=== PATIENT | male | born 1975 | race Two or more races ===

== ENCOUNTER 2023-01-18 10:10 | Inpatient (IN) | payer MEDICARE, MEDICAID ==
[~2023-01-18] VITALS: Ht 170.2 cm; Wt 69.0 kg
[2023-01-18] VITALS (29 sets, daily range): BP systolic 68–134; BP diastolic 29–83; PULSE 78–109; RESP 18–31; TEMP 94–99.7; O2SAT 72–100
[2023-01-18] MEDS ORDERED: ROCURONIUM 10MG/ML 10ML VIAL IV ONE (10:17)
[2023-01-18] MEDS ORDERED: ETOMIDATE (2MG/ML) 20ML VIAL IV ONE (10:18)
[2023-01-18] MEDS ORDERED: PROPOFOL 100 ML IV ONE (10:26)
[2023-01-18] MEDS ORDERED: NOREPINEPHRINE 8 MG/250ML KIT 250 ML IV ONE (10:27)
[2023-01-18] MEDS ORDERED: PIPERACILLIN-TAZO 4.5GM 100 ML IV ONE (10:30)
[2023-01-18] MEDS ORDERED: NOREPINEPHRINE 8 MG/250ML KIT 250 ML IV SCH (10:30)
[2023-01-18] MEDS ORDERED: VANCOMYCIN 1GM/250ML 250 ML IV ONE (10:30)
[2023-01-18] MEDS ORDERED: SODIUM CHLORIDE 0.9% 1,350 ML IV ONE (10:30)
[2023-01-18] MEDS: PROPOFOL 100 ML IV SCH ×2 (10:45→20:13)
[2023-01-18 11:22] LABS: Base Excess -3.7 mmol/L (-2.0-2.0)
[2023-01-18] MEDS ORDERED: DEXTROSE 50% SYRINGE 50 ML IV ONE (11:23)
[2023-01-18 11:24] LABS: Alanine Aminotransferase 39 U/L (7-40); Albumin 2.1 g/dL (3.2-4.8); Alkaline Phosphatase 148 U/L (46-116); Anion Gap 8.4 (5-15); Aspartate Aminotransferase 80 U/L (13-40); BUN/Creatinine Ratio 83.3 (10.0-20.0); Bilirubin, Direct 0.1 mg/dL (<0.3); Bilirubin, Total 0.3 mg/dL (0.2-1.0); Blood Urea Nitrogen 20 mg/dL (9-23); Calcium 7.3 mg/dL (8.5-10.1); Carbon Dioxide 25.6 mmol/L (20-30); Chloride 95 mmol/L (98-107); Glucose 60 mg/dL (74-106); Sodium 129 mmol/L (136-145); Total Protein 4.6 g/dL (5.7-8.2)
[2023-01-18 11:29] LABS: Hematocrit 25.1 % (41.0-53.0); Mean Corpuscular Hemoglobin 29.6 pg (28.0-32.0); Mean Corpuscular Hgb Conc. 31.9 g/dL (32.0-36.0); Mean Corpuscular Volume 92.8 fL (80.0-100.0); Red Cell Distribution Width 15.3 % (11.8-14.3); White Blood Cell 13.1 10^3/uL (4.4-10.8)
[2023-01-18] MEDS ORDERED: DEXTROSE (50%) 50ML SYRG IV ONE ×2 (11:30)
[2023-01-18 11:32] LABS: INR 1.48 (0.9-1.15); Prothrombin Time 15.1 sec (9.3-11.8)
[2023-01-18 11:39] LABS: Basophils % (manual) 0 (0.0-2.0); Blast Cells 0; Eosinophils % (manual) 0 (0-7); Metamyelocytes % 0; Myelocytes % 0; Promyelocytes % 0; Reactive Lymphocytes 0
[2023-01-18 11:54] LABS: Urine Bacteria NONE SEEN /hpf (None Seen); Urine Blood 3+ /uL (Negative); Urine Clarity HAZY (Clear); Urine Color PINK (Yellow); Urine Hyaline Cast MANY /lpf (0 - 2); Urine Mucus FEW (None Seen); Urine Protein, UAD 1+ (Negative); Urine Specific Gravity 1.017 (1.001-1.035); Urine Urobilinogen Normal (Negative); Urine WBC 130 /hpf (0 - 3); Urine pH 5.5 (5.0-8.0)
[2023-01-18 12:10] LABS: Band Neutrophils % (manual) 55; Lymphocytes % (manual) 9 (10.0-50.0); Monocytes % (manual) 9 (0-12)
[2023-01-18 12:11] LABS: Platelet Estimate Adequate
[2023-01-18 12:21] LABS: Lactic Acid w/Reflex 6.1 mmol/L (0.4-2.0)
[2023-01-18] MEDS ORDERED: CIPROFLOXACIN 400MG/200ML 200 ML IV ONE (13:00)
[2023-01-18] MEDS ORDERED: SODIUM CHLORIDE 0.9% 1,000 ML IV ONE (13:00)
[2023-01-18 13:14] LABS: Base Excess -5.4 mmol/L (-2.0-2.0)
[2023-01-18 13:20] LABS: Lipase 25 U/L (12-53)
[2023-01-18 13:42] LABS: COVID19 ANTIGEN SOFIA FIA NEGATIVE (NEGATIVE)
[2023-01-18] MEDS ORDERED: MORPHINE SULFATE INJ 2 MG/ml SYRG IV PRN (13:45)
[2023-01-18] MEDS ORDERED: NITROGLYCERIN 0.4 MG SL TAB SL PRN (13:45)
[2023-01-18] MEDS ORDERED: ACETAMINOPHEN 650 mg PER 20.3 mL UD GT PRN (14:00)
[2023-01-18] MEDS ORDERED: metroNIDAZOLE 500MG/100ML 100 ML IV SCH (14:00)
[2023-01-18] MEDS ORDERED: GABA-339 PO (14:24)
[2023-01-18] MEDS ORDERED: METH-1181 PO (14:24)
[2023-01-18] MEDS ORDERED: MIDO2.5T3 PO (14:24)
[2023-01-18] MEDS ORDERED: PANTOPRAZOLE 40 MG/10 ML VIAL INJ IV ONE (14:30)
[2023-01-18] MEDS ORDERED: LIDOCAINE 1% (LOCAL ANESTH.) PF 5ml SDV ID ONE (14:30)
[2023-01-18] MEDS: D5W/SOD CHL 0.45% 1,000 ML IV SCH (14:45)
[2023-01-18] MEDS ORDERED: THIAMINE 100mg/ml INJ (200mg/2ml VIAL) IV ONE (14:45)
[2023-01-18] MEDS: MIDAZOLAM DRIP 50 mg/50mL 50 ML IV SCH (15:00)
[2023-01-18 15:06] LABS: Base Excess -2.6 mmol/L (-2.0-2.0)
[2023-01-18] MEDS ORDERED: VANCOMYCIN PER PHARMACY 0 MG IV SCH (16:00)
[2023-01-18] MEDS: MAGNESIUM SULFATE 1GM/100ML 100 ML IV SCH ×2 (16:00→16:03)
[2023-01-18] MEDS: ALBUTEROL SULF 2.5 MG/0.5ML(0.5%) NEB SOLN NEB SCH ×2 (18:13→22:26)
[2023-01-18] MEDS: IPRATROPIUM BROM 0.5 MG/2.5ML INH SOL NEB SCH ×2 (18:13→22:26)
[2023-01-18] MEDS ORDERED: HYDROCORTISONE SOD SUCC 100 MG/2ML INJ VIAL IV ONE (19:00)
[2023-01-18] MEDS: NOREPINEPHRINE BITARTRATE 32 MG in SODIUM CHL 0.9% 218 ML IV SCH (20:10)
[2023-01-18] MEDS: VASOPRESSIN 20 UNITS in SODIUM CHL 0.9% 99 ML IV SCH (20:10)
[2023-01-18] MEDS: PHENYLEPHRINE INJ 80 MG in SODIUM CHL 0.9% 242 ML IV SCH (21:53)
[2023-01-18] MEDS: fentaNYL Drip 2500mCg/250mlNS 250 ML IV SCH (21:59)
[2023-01-18] MEDS: GABAPENTIN 300 MG CAP PO SCH (22:07)
[2023-01-18] MEDS: SODIUM CHLOR 0.9% PF (SALINE LOCK) 10ML VIAL/SYR IV SCH (22:07)
[2023-01-18] MEDS: MEROPENEM 1GM IVPB 100 ML IV SCH (22:07)
[2023-01-19] VITALS (111 sets, daily range): BP systolic 85–155; BP diastolic 44–111; PULSE 69–99; RESP 18–28; TEMP 95.9–100; O2SAT 93–100
[2023-01-19] MEDS: VANCOMYCIN 500 MG in D5W 5% 100 ML IV SCH ×2 (01:36→08:11)
[2023-01-19] MEDS: D5W/SOD CHL 0.45% 1,000 ML IV SCH (01:37)
[2023-01-19] MEDS: IPRATROPIUM BROM 0.5 MG/2.5ML INH SOL NEB SCH ×6 (02:14→22:05)
[2023-01-19] MEDS: ALBUTEROL SULF 2.5 MG/0.5ML(0.5%) NEB SOLN NEB SCH ×6 (02:14→22:05)
[2023-01-19] MEDS: MIDAZOLAM DRIP 50 mg/50mL 50 ML IV SCH ×2 (02:29→19:41)
[2023-01-19 04:10] LABS: White Blood Cell 27.2 10^3/uL (4.4-10.8)
[2023-01-19 04:16] LABS: Hematocrit 21.2 % (41.0-53.0); Mean Corpuscular Hemoglobin 29.4 pg (28.0-32.0); Mean Corpuscular Hgb Conc. 31.9 g/dL (32.0-36.0); Mean Corpuscular Volume 92.2 fL (80.0-100.0); Red Cell Distribution Width 15.7 % (11.8-14.3)
[2023-01-19 04:28] LABS: Lactic Acid w/Reflex 3.1 mmol/L (0.4-2.0)
[2023-01-19 04:31] LABS: Alanine Aminotransferase 36 U/L (7-40); Albumin 2.1 g/dL (3.2-4.8); Alkaline Phosphatase 111 U/L (46-116); Anion Gap 6 (5-15); Aspartate Aminotransferase 71 U/L (13-40); BUN/Creatinine Ratio 42.3 (10.0-20.0); Bilirubin, Total 0.2 mg/dL (0.2-1.0); Blood Urea Nitrogen 22 mg/dL (9-23); Carbon Dioxide 24 mmol/L (20-30); Chloride 95 mmol/L (98-107); Glucose 152 mg/dL (74-106); Potassium 4.2 mmol/L (3.5-5.1); Sodium 125 mmol/L (136-145); Total Protein 4.8 g/dL (5.7-8.2)
[2023-01-19 04:41] LABS: Hemoglobin 6.8 g/dL (13.5-17.5)
[2023-01-19 04:43] LABS: Basophils % (manual) 0 (0.0-2.0); Blast Cells 0; Eosinophils % (manual) 0 (0-7); Metamyelocytes % 0; Promyelocytes % 0; Reactive Lymphocytes 0
[2023-01-19] MEDS: VASOPRESSIN 20 UNITS in SODIUM CHL 0.9% 99 ML IV SCH ×2 (04:52→15:59)
[2023-01-19 04:59] LABS: Band Neutrophils % (manual) 52; Lymphocytes % (manual) 5 (10.0-50.0); Myelocytes % 1
[2023-01-19 05:02] LABS: Anisocytosis Slight; Hypochromia Slight; Ovalocytes FEW
[2023-01-19 05:03] LABS: Large Platelets FEW; Monocytes % (manual) 1 (0-12)
[2023-01-19] MEDS: GABAPENTIN 300 MG CAP PO SCH (05:24)
[2023-01-19] MEDS: MEROPENEM 1GM IVPB 100 ML IV SCH ×3 (05:24→21:39)
[2023-01-19 05:43] LABS: Platelet Estimate Adequate
[2023-01-19] MEDS ORDERED: cefTRIAXone 1GM/50ML D5W 50 ML IV SCH (09:00)
[2023-01-19] MEDS ORDERED: MIDODRINE HCL 10 MG TAB PO SCH (10:00)
[2023-01-19] MEDS ORDERED: ENOXAPARIN SOD 40 MG/0.4 ML SYRINGE SC SCH (10:00)
[2023-01-19] MEDS: ATRACURIUM BESYLATE 1,000 MG in D5W 5% 150 ML IV SCH ×2 (10:35→17:55)
[2023-01-19] MEDS: SODIUM CHLOR 0.9% PF (SALINE LOCK) 10ML VIAL/SYR IV SCH ×2 (10:37→21:39)
[2023-01-19] MEDS ORDERED: TPN PER PHARMACY 0 ML IV SCH (10:45)
[2023-01-19] MEDS: SODIUM CHLORIDE 0.9% 1,000 ML IV SCH ×2 (11:29→19:44)
[2023-01-19] MEDS: HYDROCORTISONE SOD SUCC 100 MG/2ML INJ VIAL IV SCH ×3 (11:33→21:39)
[2023-01-19] MEDS: PANTOPRAZOLE 40 MG/10 ML VIAL INJ IV SCH (11:33)
[2023-01-19 11:34] LABS: Base Excess -2.8 mmol/L (-2.0-2.0)
[2023-01-19] MEDS: NOREPINEPHRINE BITARTRATE 32 MG in SODIUM CHL 0.9% 218 ML IV SCH (13:42)
[2023-01-19 16:17] LABS: Hemoglobin 8.1 g/dL (13.5-17.5)
[2023-01-19] MEDS ORDERED: AMINO ACID INFUSION IN D10W 1,000 ML IV NR (20:00)
[2023-01-19] MEDS: PHENYLEPHRINE INJ 80 MG in SODIUM CHL 0.9% 242 ML IV SCH (20:45)
[2023-01-19] MEDS: fentaNYL Drip 2500mCg/250mlNS 250 ML IV SCH (21:53)
[2023-01-19] MEDS: InsuLIN REG 1unit/0.01ml Soln (100units/ml) SC SCH (23:56)
[2023-01-19] MEDS: ACCU-CHEK COMFORT CURVE STRIP VI SCH (23:56)
[2023-01-20] VITALS (104 sets, daily range): BP systolic 79–164; BP diastolic 47–104; PULSE 70–100; RESP 21–35; TEMP 96.3–99.9; O2SAT 86–100
[2023-01-20] MEDS ORDERED: DEXTROSE (50%) 50ML SYRG IV SCH
[2023-01-20] MEDS: IPRATROPIUM BROM 0.5 MG/2.5ML INH SOL NEB SCH ×6 (02:24→22:40)
[2023-01-20] MEDS: ALBUTEROL SULF 2.5 MG/0.5ML(0.5%) NEB SOLN NEB SCH ×6 (02:24→22:40)
[2023-01-20] MEDS: VASOPRESSIN 20 UNITS in SODIUM CHL 0.9% 99 ML IV SCH ×2 (03:06→14:13)
[2023-01-20 04:38] LABS: Basophils # (auto) 0 10 ^3/uL (0-0.2); Basophils % (auto) 0.2 % (0.0-2.0); Eosinophils # (auto) 0 10 ^3/uL (0-0.8); Lymphocytes # (auto) 0.4 10 ^3/uL (0.4-5.4); Monocytes # (auto) 0.4 10 ^3/uL (0-1.3)
[2023-01-20 04:42] LABS: Hematocrit 25.1 % (41.0-53.0); Hemoglobin 8.6 g/dL (13.5-17.5); Lymphocytes % (auto) 2.6 % (10.0-50.0); Mean Corpuscular Hemoglobin 30.5 pg (28.0-32.0); Mean Corpuscular Hgb Conc. 34.3 g/dL (32.0-36.0); Mean Corpuscular Volume 89.1 fL (80.0-100.0); Monocytes % (auto) 2.4 % (0.0-12.0); Neutrophils # (auto) 15.8 10 ^3/uL (1.6-8.6); Neutrophils % (auto) 94.8 % (37.0-80.0); Nucleated Red Blood Cells % 0.2 %; Red Blood Cells 2.82 10^6/uL (4.5-5.90); Red Cell Distribution Width 16.2 % (11.8-14.3); White Blood Cell 16.7 10^3/uL (4.4-10.8)
[2023-01-20 05:03] LABS: Alanine Aminotransferase 33 U/L (7-40); Albumin 2.3 g/dL (3.2-4.8); Alkaline Phosphatase 108 U/L (46-116); Anion Gap 5 (5-15); Aspartate Aminotransferase 58 U/L (13-40); Blood Urea Nitrogen 29 mg/dL (9-23); Calcium 6.9 mg/dL (8.5-10.1); Carbon Dioxide 24 mmol/L (20-30); Chloride 103 mmol/L (98-107); Glucose 107 mg/dL (74-106); Phosphorus 5.1 mg/dL (2.4-5.1); Potassium 4.3 mmol/L (3.5-5.1); Triglycerides 44 mg/dL (< 150)
[2023-01-20 05:04] LABS: Bilirubin, Total 0.2 mg/dL (0.2-1.0); Total Protein 5.2 g/dL (5.7-8.2)
[2023-01-20] MEDS: ACCU-CHEK COMFORT CURVE STRIP VI SCH ×4 (05:40→23:31)
[2023-01-20] MEDS: HYDROCORTISONE SOD SUCC 100 MG/2ML INJ VIAL IV SCH ×3 (05:40→21:08)
[2023-01-20] MEDS: MEROPENEM 1GM IVPB 100 ML IV SCH ×3 (05:40→21:05)
[2023-01-20] MEDS: SODIUM CHLORIDE 0.9% 1,000 ML IV SCH ×2 (05:41→18:13)
[2023-01-20] MEDS: InsuLIN REG 1unit/0.01ml Soln (100units/ml) SC SCH ×4 (05:49→23:32)
[2023-01-20 06:13] LABS: Sodium 132 mmol/L (136-145)
[2023-01-20] MEDS: fentaNYL Drip 2500mCg/250mlNS 250 ML IV SCH (09:00)
[2023-01-20] MEDS: VANCOMYCIN 500 MG in D5W 5% 100 ML IV SCH ×2 (09:28→18:15)
[2023-01-20 09:35] LABS: Base Excess -1.2 mmol/L (-2.0-2.0)
[2023-01-20] MEDS ORDERED: ENOXAPARIN SOD 30 MG/0.3 ML SYRINGE SC SCH (10:00)
[2023-01-20] MEDS: PANTOPRAZOLE 40 MG/10 ML VIAL INJ IV SCH (10:38)
[2023-01-20] MEDS: SODIUM CHLOR 0.9% PF (SALINE LOCK) 10ML VIAL/SYR IV SCH ×2 (10:39→21:08)
[2023-01-20] MEDS: PROPOFOL 100 ML IV SCH (11:56)
[2023-01-20 12:42] LABS: Base Excess -4.2 mmol/L (-2.0-2.0)
[2023-01-20 15:02] LABS: Base Excess -4.4 mmol/L (-2.0-2.0)
[2023-01-20] MEDS: NOREPINEPHRINE BITARTRATE 32 MG in SODIUM CHL 0.9% 218 ML IV SCH (15:54)
[2023-01-20] MEDS ORDERED: IOHEXOL 300 MG/ML 100ML BOTTLE IJ ONE (15:59)
[2023-01-20] MEDS: ATRACURIUM BESYLATE 1,000 MG in D5W 5% 150 ML IV SCH (18:45)
[2023-01-20] MEDS: MIDAZOLAM DRIP 50 mg/50mL 50 ML IV SCH (19:34)
[2023-01-20] MEDS ORDERED: TPN PER PHARMACY IV NR ×7 (20:00)
[2023-01-20] MEDS: PHENYLEPHRINE INJ 80 MG in SODIUM CHL 0.9% 242 ML IV SCH (20:45)
[2023-01-21] VITALS (115 sets, daily range): BP systolic 92–135; BP diastolic 48–86; PULSE 71–103; RESP 25–32; TEMP 96.3–99.3; O2SAT 90–100
[2023-01-21] MEDS: VASOPRESSIN 20 UNITS in SODIUM CHL 0.9% 99 ML IV SCH ×3 (01:20→22:42)
[2023-01-21] MEDS: VANCOMYCIN 500 MG in D5W 5% 100 ML IV SCH ×2 (01:21→20:08)
[2023-01-21] MEDS: SODIUM CHLORIDE 0.9% 1,000 ML IV SCH ×3 (01:29→21:31)
[2023-01-21] MEDS: IPRATROPIUM BROM 0.5 MG/2.5ML INH SOL NEB SCH ×6 (02:24→22:04)
[2023-01-21] MEDS: ALBUTEROL SULF 2.5 MG/0.5ML(0.5%) NEB SOLN NEB SCH ×6 (02:24→22:04)
[2023-01-21 04:38] LABS: Basophils # (auto) 0 10 ^3/uL (0-0.2); Basophils % (auto) 0.1 % (0.0-2.0); Eosinophils # (auto) 0 10 ^3/uL (0-0.8); Hemoglobin 7.1 g/dL (13.5-17.5); Lymphocytes # (auto) 0.6 10 ^3/uL (0.4-5.4); Monocytes # (auto) 0.5 10 ^3/uL (0-1.3); Neutrophils # (auto) 14.3 10 ^3/uL (1.6-8.6); White Blood Cell 15.4 10^3/uL (4.4-10.8)
[2023-01-21 04:40] LABS: Hematocrit 21.2 % (41.0-53.0); Mean Corpuscular Hemoglobin 29.6 pg (28.0-32.0); Mean Corpuscular Hgb Conc. 33.6 g/dL (32.0-36.0); Mean Corpuscular Volume 88.2 fL (80.0-100.0); Monocytes % (auto) 3.2 % (0.0-12.0); Neutrophils % (auto) 92.7 % (37.0-80.0); Nucleated Red Blood Cells % 0.3 %; Red Cell Distribution Width 16.1 % (11.8-14.3)
[2023-01-21 04:59] LABS: Alanine Aminotransferase 29 U/L (7-40); Alkaline Phosphatase 101 U/L (46-116); Anion Gap 7 (5-15); Aspartate Aminotransferase 42 U/L (13-40); BUN/Creatinine Ratio 68.5 (10.0-20.0); Blood Urea Nitrogen 37 mg/dL (9-23); Calcium 7.2 mg/dL (8.7-10.4); Carbon Dioxide 24 mmol/L (20-30); Chloride 108 mmol/L (98-107); Glucose 127 mg/dL (74-106); Magnesium 2.2 mg/dL (1.6-2.6); Sodium 139 mmol/L (136-145)
[2023-01-21 05:00] LABS: Albumin 2.1 g/dL (3.2-4.8); Phosphorus 4.3 mg/dL (2.4-5.1)
[2023-01-21 05:01] LABS: Bilirubin, Total < 0.2 mg/dL (0.2-1.0); Total Protein 4.8 g/dL (5.7-8.2)
[2023-01-21] MEDS: InsuLIN REG 1unit/0.01ml Soln (100units/ml) SC SCH ×4 (06:00→23:24)
[2023-01-21] MEDS: MEROPENEM 1GM IVPB 100 ML IV SCH ×3 (06:11→21:31)
[2023-01-21] MEDS: HYDROCORTISONE SOD SUCC 100 MG/2ML INJ VIAL IV SCH (06:11)
[2023-01-21] MEDS: ACCU-CHEK COMFORT CURVE STRIP VI SCH ×4 (06:11→23:24)
[2023-01-21] MEDS: PANTOPRAZOLE 40 MG/10 ML VIAL INJ IV SCH (10:17)
[2023-01-21] MEDS: ENOXAPARIN SOD 40 MG/0.4 ML SYRINGE SC SCH (10:17)
[2023-01-21] MEDS: SODIUM CHLOR 0.9% PF (SALINE LOCK) 10ML VIAL/SYR IV SCH ×2 (10:17→21:31)
[2023-01-21] MEDS: PROPOFOL 100 ML IV SCH (12:22)
[2023-01-21] MEDS: fentaNYL Drip 2500mCg/250mlNS 250 ML IV SCH (14:01)
[2023-01-21] MEDS: NOREPINEPHRINE BITARTRATE 32 MG in SODIUM CHL 0.9% 218 ML IV SCH (17:42)
[2023-01-21] MEDS: ATRACURIUM BESYLATE 1,000 MG in D5W 5% 150 ML IV SCH (18:03)
[2023-01-21] MEDS: MIDAZOLAM DRIP 50 mg/50mL 50 ML IV SCH (18:27)
[2023-01-21] MEDS ORDERED: TPN PER PHARMACY IV NR ×8 (20:00)
[2023-01-21] MEDS: PHENYLEPHRINE INJ 80 MG in SODIUM CHL 0.9% 242 ML IV SCH (20:45)
[2023-01-22] VITALS (113 sets, daily range): BP systolic 93–167; BP diastolic 45–100; PULSE 77–115; RESP 15–34; TEMP 97–100.4; O2SAT 88–100
[2023-01-22] MEDS: ALBUTEROL SULF 2.5 MG/0.5ML(0.5%) NEB SOLN NEB SCH ×6 (02:21→22:12)
[2023-01-22] MEDS: IPRATROPIUM BROM 0.5 MG/2.5ML INH SOL NEB SCH ×6 (02:21→22:12)
[2023-01-22 04:06] LABS: Alanine Aminotransferase 28 U/L (7-40); Albumin 2.1 g/dL (3.2-4.8); Alkaline Phosphatase 96 U/L (46-116); Anion Gap 6 (5-15); Aspartate Aminotransferase 37 U/L (13-40); Bilirubin, Total < 0.2 mg/dL (0.2-1.0); Blood Urea Nitrogen 44 mg/dL (9-23); Calcium 7.5 mg/dL (8.7-10.4); Carbon Dioxide 24 mmol/L (20-30); Chloride 112 mmol/L (98-107); Glucose 126 mg/dL (74-106); Magnesium 2.1 mg/dL (1.6-2.6); Phosphorus 2.7 mg/dL (2.4-5.1); Potassium 3.2 mmol/L (3.5-5.1); Sodium 142 mmol/L (136-145); Total Protein 4.8 g/dL (5.7-8.2)
[2023-01-22 04:07] LABS: Basophils # (auto) 0 10 ^3/uL (0-0.2); Basophils % (auto) 0.2 % (0.0-2.0); Eosinophils # (auto) 0 10 ^3/uL (0-0.8); Lymphocytes # (auto) 1.2 10 ^3/uL (0.4-5.4); Mean Corpuscular Hemoglobin 29.2 pg (28.0-32.0); Monocytes # (auto) 0.6 10 ^3/uL (0-1.3); Monocytes % (auto) 3.5 % (0.0-12.0); Nucleated Red Blood Cells % 0.5 %
[2023-01-22 04:09] LABS: Hematocrit 21.2 % (41.0-53.0); Lymphocytes % (auto) 6.6 % (10.0-50.0); Mean Corpuscular Hgb Conc. 32.8 g/dL (32.0-36.0); Mean Corpuscular Volume 89.1 fL (80.0-100.0); Neutrophils # (auto) 16.2 10 ^3/uL (1.6-8.6); Neutrophils % (auto) 89.7 % (37.0-80.0); Red Blood Cells 2.38 10^6/uL (4.5-5.90); Red Cell Distribution Width 16.3 % (11.8-14.3); White Blood Cell 18.1 10^3/uL (4.4-10.8)
[2023-01-22] MEDS: InsuLIN REG 1unit/0.01ml Soln (100units/ml) SC SCH ×3 (06:00→17:46)
[2023-01-22] MEDS: ACCU-CHEK COMFORT CURVE STRIP VI SCH ×3 (06:02→17:46)
[2023-01-22] MEDS: MEROPENEM 1GM IVPB 100 ML IV SCH (06:21)
[2023-01-22] MEDS: SODIUM CHLORIDE 0.9% 1,000 ML IV SCH (06:39)
[2023-01-22] MEDS ORDERED: FUROSEMIDE 20 MG/2 ML VIAL IV ONE (07:30)
[2023-01-22 07:39] LABS: Base Excess -3.4 mmol/L (-2.0-2.0)
[2023-01-22] MEDS ORDERED: POTASSIUM PHOSPHATE 22 MEQ in SODIUM CHL 0.9% 100 ML IV ONE (09:45)
[2023-01-22] MEDS: SODIUM CHLOR 0.9% PF (SALINE LOCK) 10ML VIAL/SYR IV SCH ×2 (09:48→22:13)
[2023-01-22] MEDS: VANCOMYCIN 500 MG in D5W 5% 100 ML IV SCH ×2 (09:48→20:38)
[2023-01-22] MEDS: PANTOPRAZOLE 40 MG/10 ML VIAL INJ IV SCH ×2 (09:48→22:12)
[2023-01-22] MEDS: VASOPRESSIN 20 UNITS in SODIUM CHL 0.9% 99 ML IV SCH ×2 (10:41→21:48)
[2023-01-22] MEDS: levoFLOXacin 750MG 150 ML IV SCH (10:42)
[2023-01-22] MEDS: fentaNYL Drip 2500mCg/250mlNS 250 ML IV SCH (11:31)
[2023-01-22] MEDS ORDERED: ACETYLCYSTEINE 10 %(100MG/ML) SOL 4ML NEB SCH (12:00)
[2023-01-22] MEDS: ENOXAPARIN SOD 40 MG/0.4 ML SYRINGE SC SCH (12:04)
[2023-01-22] MEDS: PROPOFOL 100 ML IV SCH (12:30)
[2023-01-22] MEDS: MIDAZOLAM DRIP 50 mg/50mL 50 ML IV SCH (12:45)
[2023-01-22] MEDS: MICAFUNGIN SODIUM 100 MG in SODIUM CHL 0.9% 100 ML IV SCH (12:47)
[2023-01-22] MEDS: NOREPINEPHRINE BITARTRATE 32 MG in SODIUM CHL 0.9% 218 ML IV SCH (17:46)
[2023-01-22] MEDS ORDERED: EPINEPHrine HCL 1 MG/1 ML AMP ONE (17:57)
[2023-01-22] MEDS ORDERED: LIDOCAINE 2% JELLY 11ml (GLYDO) ONE (17:57)
[2023-01-22] MEDS ORDERED: LIDOCAINE 2%HCL (LOCAL ANESTH.) INJ 20ML MDV ONE (17:57)
[2023-01-22] MEDS: ATRACURIUM BESYLATE 1,000 MG in D5W 5% 150 ML IV SCH (18:45)
[2023-01-22] MEDS ORDERED: TPN PER PHARMACY IV NR ×10 (20:00)
[2023-01-22] MEDS: PHENYLEPHRINE INJ 80 MG in SODIUM CHL 0.9% 242 ML IV SCH (20:43)
[2023-01-22] MEDS: ACETYLCYSTEINE 10 %(100MG/ML) SOL 4ML NEB SCH (22:13)
[2023-01-23] VITALS (108 sets, daily range): BP systolic 84–166; BP diastolic 40–85; PULSE 89–107; RESP 14–28; TEMP 97.3–98.4; O2SAT 93–98
[2023-01-23] MEDS: ACCU-CHEK COMFORT CURVE STRIP VI SCH ×5 (00:05→23:31)
[2023-01-23] MEDS: fentaNYL Drip 2500mCg/250mlNS 250 ML IV SCH ×3 (00:06→23:15)
[2023-01-23] MEDS: MIDAZOLAM DRIP 50 mg/50mL 50 ML IV SCH ×3 (00:55→16:24)
[2023-01-23] MEDS: IPRATROPIUM BROM 0.5 MG/2.5ML INH SOL NEB SCH ×6 (02:33→22:15)
[2023-01-23] MEDS: ALBUTEROL SULF 2.5 MG/0.5ML(0.5%) NEB SOLN NEB SCH ×6 (02:33→22:15)
[2023-01-23 03:10] LABS: Alanine Aminotransferase 26 U/L (7-40); Alkaline Phosphatase 102 U/L (46-116); Anion Gap 5 (5-15); Aspartate Aminotransferase 43 U/L (13-40); BUN/Creatinine Ratio 71.4 (10.0-20.0); Blood Urea Nitrogen 40 mg/dL (9-23); Calcium 7.5 mg/dL (8.7-10.4); Carbon Dioxide 22 mmol/L (20-30); Chloride 114 mmol/L (98-107); Glucose 124 mg/dL (74-106); Magnesium 1.9 mg/dL (1.6-2.6); Potassium 3.4 mmol/L (3.5-5.1); Sodium 141 mmol/L (136-145)
[2023-01-23 03:11] LABS: Bilirubin, Total < 0.2 mg/dL (0.2-1.0); Phosphorus 3.6 mg/dL (2.4-5.1); Total Protein 4.8 g/dL (5.7-8.2)
[2023-01-23 03:22] LABS: Hematocrit 29.8 % (41.0-53.0); Hemoglobin 9.5 g/dL (13.5-17.5); Mean Corpuscular Hgb Conc. 31.8 g/dL (32.0-36.0); Mean Corpuscular Volume 91.2 fL (80.0-100.0); Red Blood Cells 3.27 10^6/uL (4.5-5.90); Red Cell Distribution Width 15.7 % (11.8-14.3); White Blood Cell 25.1 10^3/uL (4.4-10.8)
[2023-01-23 03:35] LABS: Band Neutrophils % (manual) 0; Basophils % (manual) 0 (0.0-2.0); Blast Cells 0; Eosinophils % (manual) 0 (0-7); Metamyelocytes % 0; Myelocytes % 0; Promyelocytes % 0; Reactive Lymphocytes 0
[2023-01-23 04:17] LABS: Lymphocytes % (manual) 4 (10.0-50.0); Monocytes % (manual) 2 (0-12); Platelet Estimate Decreased
[2023-01-23] MEDS ORDERED: Ensure Enlive Vanilla 8oz Bottle PO SCH (06:00)
[2023-01-23] MEDS: InsuLIN REG 1unit/0.01ml Soln (100units/ml) SC SCH ×5 (06:00→23:41)
[2023-01-23] MEDS: ACETYLCYSTEINE 10 %(100MG/ML) SOL 4ML NEB SCH ×3 (06:18→22:16)
[2023-01-23 07:16] LABS: Base Excess -7.6 mmol/L (-2.0-2.0)
[2023-01-23] MEDS: VASOPRESSIN 20 UNITS in SODIUM CHL 0.9% 99 ML IV SCH ×2 (08:55→20:02)
[2023-01-23] MEDS: ENOXAPARIN SOD 40 MG/0.4 ML SYRINGE SC SCH (09:38)
[2023-01-23] MEDS: levoFLOXacin 750MG 150 ML IV SCH (09:38)
[2023-01-23] MEDS: MICAFUNGIN SODIUM 100 MG in SODIUM CHL 0.9% 100 ML IV SCH (09:38)
[2023-01-23] MEDS: PANTOPRAZOLE 40 MG/10 ML VIAL INJ IV SCH ×2 (09:38→22:12)
[2023-01-23] MEDS: SODIUM CHLOR 0.9% PF (SALINE LOCK) 10ML VIAL/SYR IV SCH ×2 (10:24→22:12)
[2023-01-23] MEDS ORDERED: POTASSIUM CHL 20MEQ/100ML 100 ML IV ONE (11:45)
[2023-01-23] MEDS: FREE WATER GT SCH ×3 (12:03→23:41)
[2023-01-23] MEDS: PROPOFOL 100 ML IV SCH (12:30)
[2023-01-23 12:40] LABS: Base Excess -7.8 mmol/L (-2.0-2.0)
[2023-01-23] MEDS: NOREPINEPHRINE BITARTRATE 32 MG in SODIUM CHL 0.9% 218 ML IV SCH (14:22)
[2023-01-23 14:53] LABS: Base Excess -8.5 mmol/L (-2.0-2.0)
[2023-01-23] MEDS: LINEZOLID 600MG/300ML 300 ML IV SCH (15:00)
[2023-01-23] MEDS: ATRACURIUM BESYLATE 1,000 MG in D5W 5% 150 ML IV SCH (18:45)
[2023-01-23] MEDS ORDERED: TPN PER PHARMACY IV NR ×11 (20:00)
[2023-01-23] MEDS: PHENYLEPHRINE INJ 80 MG in SODIUM CHL 0.9% 242 ML IV SCH (20:45)
[2023-01-24] VITALS (106 sets, daily range): BP systolic 77–157; BP diastolic 37–99; PULSE 88–118; RESP 15–30; TEMP 95.4–99.3; O2SAT 88–99
[2023-01-24] MEDS: MIDAZOLAM DRIP 50 mg/50mL 50 ML IV SCH ×5 (01:44→21:08)
[2023-01-24] MEDS: IPRATROPIUM BROM 0.5 MG/2.5ML INH SOL NEB SCH ×6 (02:06→22:04)
[2023-01-24] MEDS: ALBUTEROL SULF 2.5 MG/0.5ML(0.5%) NEB SOLN NEB SCH ×6 (02:06→22:04)
[2023-01-24] MEDS: LINEZOLID 600MG/300ML 300 ML IV SCH ×2 (02:58→15:35)
[2023-01-24 03:23] LABS: Hematocrit 25.6 % (41.0-53.0)
[2023-01-24 03:24] LABS: Hemoglobin 8.3 g/dL (13.5-17.5); Mean Corpuscular Hemoglobin 29.4 pg (28.0-32.0); Mean Corpuscular Hgb Conc. 32.4 g/dL (32.0-36.0); Red Blood Cells 2.82 10^6/uL (4.5-5.90); Red Cell Distribution Width 15.9 % (11.8-14.3); White Blood Cell 25.3 10^3/uL (4.4-10.8)
[2023-01-24 03:30] LABS: Band Neutrophils % (manual) 0; Basophils % (manual) 0 (0.0-2.0); Blast Cells 0; Eosinophils % (manual) 0 (0-7); Metamyelocytes % 0; Promyelocytes % 0; Reactive Lymphocytes 0
[2023-01-24 03:40] LABS: Alanine Aminotransferase 22 U/L (7-40); Albumin 1.8 g/dL (3.2-4.8); Alkaline Phosphatase 103 U/L (46-116); Anion Gap 5 (5-15); Aspartate Aminotransferase 37 U/L (13-40); BUN/Creatinine Ratio 57.5 (10.0-20.0); Bilirubin, Total < 0.2 mg/dL (0.2-1.0); Calcium 7.5 mg/dL (8.7-10.4); Carbon Dioxide 21 mmol/L (20-30); Chloride 111 mmol/L (98-107); Glucose 116 mg/dL (74-106); Magnesium 2.1 mg/dL (1.6-2.6); Potassium 3.8 mmol/L (3.5-5.1); Sodium 137 mmol/L (136-145); Total Protein 4.6 g/dL (5.7-8.2)
[2023-01-24 03:45] LABS: Blood Urea Nitrogen 50 mg/dL (9-23); INR 1.31 (0.9-1.15); Prothrombin Time 13.5 sec (9.3-11.8)
[2023-01-24 03:55] LABS: Lymphocytes % (manual) 7 (10.0-50.0); Monocytes % (manual) 2 (0-12); Myelocytes % 4; Platelet Estimate Decreased
[2023-01-24 04:01] LABS: Partial Thromboplastin Time 80.3 SEC (24.5-34.5)
[2023-01-24] MEDS: InsuLIN REG 1unit/0.01ml Soln (100units/ml) SC SCH ×4 (06:00→23:59)
[2023-01-24] MEDS: FREE WATER GT SCH ×4 (06:19→23:58)
[2023-01-24] MEDS: ACCU-CHEK COMFORT CURVE STRIP VI SCH ×4 (06:19→23:58)
[2023-01-24] MEDS: ACETYLCYSTEINE 10 %(100MG/ML) SOL 4ML NEB SCH ×2 (06:29→13:34)
[2023-01-24] MEDS: VASOPRESSIN 20 UNITS in SODIUM CHL 0.9% 99 ML IV SCH ×2 (06:54→19:15)
[2023-01-24 07:50] LABS: Base Excess -8.8 mmol/L (-2.0-2.0)
[2023-01-24] MEDS ORDERED: SODIUM BICARBONATE 8.4 % INJ 50ML VIAL IV ONE (09:15)
[2023-01-24] MEDS: MICAFUNGIN SODIUM 100 MG in SODIUM CHL 0.9% 100 ML IV SCH (10:16)
[2023-01-24] MEDS: SODIUM CHLOR 0.9% PF (SALINE LOCK) 10ML VIAL/SYR IV SCH ×2 (10:16→22:00)
[2023-01-24] MEDS: PANTOPRAZOLE 40 MG/10 ML VIAL INJ IV SCH ×2 (10:16→21:07)
[2023-01-24] MEDS: MEROPENEM 1GM IVPB 100 ML IV SCH ×2 (10:16→18:31)
[2023-01-24] MEDS: fentaNYL Drip 2500mCg/250mlNS 250 ML IV SCH ×2 (10:51→23:11)
[2023-01-24] MEDS: PROPOFOL 100 ML IV SCH (12:30)
[2023-01-24] MEDS ORDERED: SODIUM CHLORIDE 0.9% 500 ML IV ONE (15:30)
[2023-01-24] MEDS: NOREPINEPHRINE BITARTRATE 32 MG in SODIUM CHL 0.9% 218 ML IV SCH (19:14)
[2023-01-24] MEDS: ATRACURIUM BESYLATE 1,000 MG in D5W 5% 150 ML IV SCH (19:15)
[2023-01-24] MEDS ORDERED: TPN PER PHARMACY IV NR ×11 (20:00)
[2023-01-24] MEDS: PHENYLEPHRINE INJ 80 MG in SODIUM CHL 0.9% 242 ML IV SCH (20:17)
[2023-01-25] VITALS (110 sets, daily range): BP systolic 85–164; BP diastolic 40–92; PULSE 95–118; RESP 18–29; TEMP 96.8–99.1; O2SAT 90–99
[2023-01-25] MEDS: MEROPENEM 1GM IVPB 100 ML IV SCH ×3 (01:30→18:22)
[2023-01-25] MEDS: IPRATROPIUM BROM 0.5 MG/2.5ML INH SOL NEB SCH ×6 (02:32→21:54)
[2023-01-25] MEDS: ALBUTEROL SULF 2.5 MG/0.5ML(0.5%) NEB SOLN NEB SCH ×6 (02:32→21:54)
[2023-01-25] MEDS: LINEZOLID 600MG/300ML 300 ML IV SCH ×2 (03:07→15:14)
[2023-01-25] MEDS: MIDAZOLAM DRIP 50 mg/50mL 50 ML IV SCH ×5 (03:08→21:52)
[2023-01-25 04:12] LABS: Hemoglobin 8.8 g/dL (13.5-17.5)
[2023-01-25 04:15] LABS: Hematocrit 27.5 % (41.0-53.0); Mean Corpuscular Volume 90.6 fL (80.0-100.0); Red Blood Cells 3.04 10^6/uL (4.5-5.90); Red Cell Distribution Width 15.5 % (11.8-14.3)
[2023-01-25 04:23] LABS: Basophils % (manual) 0 (0.0-2.0); Blast Cells 0; Eosinophils % (manual) 0 (0-7); Metamyelocytes % 0; Monocytes % (manual) 0 (0-12); Myelocytes % 0; Promyelocytes % 0; Reactive Lymphocytes 0; White Blood Cell 38.6 10^3/uL (4.4-10.8)
[2023-01-25 04:34] LABS: Alanine Aminotransferase 28 U/L (7-40); Albumin 2.2 g/dL (3.2-4.8); Alkaline Phosphatase 133 U/L (46-116); Anion Gap 6 (5-15); Aspartate Aminotransferase 52 U/L (13-40); BUN/Creatinine Ratio 52.1 (10.0-20.0); Bilirubin, Total < 0.2 mg/dL (0.2-1.0); Calcium 7.6 mg/dL (8.7-10.4); Carbon Dioxide 23 mmol/L (20-30); Chloride 104 mmol/L (98-107); Glucose 143 mg/dL (74-106); Magnesium 2.1 mg/dL (1.6-2.6); Phosphorus 3.3 mg/dL (2.4-5.1); Potassium 4.2 mmol/L (3.5-5.1); Sodium 133 mmol/L (136-145); Total Protein 5.2 g/dL (5.7-8.2)
[2023-01-25 04:35] LABS: Blood Urea Nitrogen 63 mg/dL (9-23)
[2023-01-25 04:58] LABS: Band Neutrophils % (manual) 1; Lymphocytes % (manual) 2 (10.0-50.0); Platelet Estimate Adequate
[2023-01-25] MEDS: VASOPRESSIN 20 UNITS in SODIUM CHL 0.9% 99 ML IV SCH ×2 (05:23→16:30)
[2023-01-25] MEDS: InsuLIN REG 1unit/0.01ml Soln (100units/ml) SC SCH ×4 (06:00→23:56)
[2023-01-25] MEDS: FREE WATER GT SCH ×3 (06:27→18:22)
[2023-01-25] MEDS: ACCU-CHEK COMFORT CURVE STRIP VI SCH ×4 (06:28→23:55)
[2023-01-25] MEDS: FUROSEMIDE 40 MG/4 ML VIAL IV SCH ×2 (08:26→18:22)
[2023-01-25] MEDS ORDERED: GASTROGRAFIN 30 ML SOL ONE ×2 (09:46→10:08)
[2023-01-25] MEDS: PANTOPRAZOLE 40 MG/10 ML VIAL INJ IV SCH ×2 (10:30→21:21)
[2023-01-25] MEDS: methylPREDNISolone SOD SUCC 40 MG/ML VL IV SCH (10:30)
[2023-01-25] MEDS: LACTULOSE 20Gm/30ML SOLN PO SCH (10:35)
[2023-01-25] MEDS: MICAFUNGIN SODIUM 100 MG in SODIUM CHL 0.9% 100 ML IV SCH (10:35)
[2023-01-25] MEDS: SODIUM CHLOR 0.9% PF (SALINE LOCK) 10ML VIAL/SYR IV SCH ×2 (10:36→22:14)
[2023-01-25] MEDS: fentaNYL Drip 2500mCg/250mlNS 250 ML IV SCH (12:26)
[2023-01-25] MEDS: PROPOFOL 100 ML IV SCH (12:30)
[2023-01-25] MEDS: NOREPINEPHRINE BITARTRATE 32 MG in SODIUM CHL 0.9% 218 ML IV SCH ×2 (18:15→23:56)
[2023-01-25] MEDS: ATRACURIUM BESYLATE 1,000 MG in D5W 5% 150 ML IV SCH (18:45)
[2023-01-25] MEDS ORDERED: TPN PER PHARMACY IV NR ×11 (20:00)
[2023-01-25] MEDS: PHENYLEPHRINE INJ 80 MG in SODIUM CHL 0.9% 242 ML IV SCH (20:45)
[2023-01-25] MEDS ORDERED: METOCLOPRAMIDE HCL 5MG/ml INJ 2ml VIAL IV ONE (20:45)
[2023-01-25] MEDS ORDERED: ceFAZolin 2 GM/D5W100ml 100 ML IV ONE (21:30)
[2023-01-26] VITALS (109 sets, daily range): BP systolic 86–166; BP diastolic 38–106; PULSE 102–117; RESP 16–28; TEMP 96.8–99.1; O2SAT 92–98
[2023-01-26] MEDS: fentaNYL Drip 2500mCg/250mlNS 250 ML IV SCH ×3 (00:01→22:50)
[2023-01-26] MEDS: MIDAZOLAM DRIP 50 mg/50mL 50 ML IV SCH ×6 (01:25→22:12)
[2023-01-26] MEDS: IPRATROPIUM BROM 0.5 MG/2.5ML INH SOL NEB SCH ×6 (02:28→22:11)
[2023-01-26] MEDS: ALBUTEROL SULF 2.5 MG/0.5ML(0.5%) NEB SOLN NEB SCH ×6 (02:28→22:11)
[2023-01-26] MEDS: VASOPRESSIN 20 UNITS in SODIUM CHL 0.9% 99 ML IV SCH ×2 (03:37→14:44)
[2023-01-26 04:16] LABS: Hematocrit 26.6 % (41.0-53.0); Hemoglobin 8.6 g/dL (13.5-17.5); Mean Corpuscular Hemoglobin 29.3 pg (28.0-32.0); Mean Corpuscular Hgb Conc. 32.4 g/dL (32.0-36.0); Mean Corpuscular Volume 90.5 fL (80.0-100.0); Red Blood Cells 2.95 10^6/uL (4.5-5.90); Red Cell Distribution Width 15.9 % (11.8-14.3)
[2023-01-26 04:27] LABS: INR 1.14 (0.9-1.15); Partial Thromboplastin Time 49.2 SEC (24.5-34.5); Prothrombin Time 11.9 sec (9.3-11.8); White Blood Cell 32.5 10^3/uL (4.4-10.8)
[2023-01-26 04:28] LABS: Band Neutrophils % (manual) 0; Basophils % (manual) 0 (0.0-2.0); Blast Cells 0; Eosinophils % (manual) 0 (0-7); Metamyelocytes % 0; Promyelocytes % 0; Reactive Lymphocytes 0
[2023-01-26 04:33] LABS: Alanine Aminotransferase 36 U/L (7-40); Alkaline Phosphatase 143 U/L (46-116); Anion Gap 5 (5-15); Aspartate Aminotransferase 54 U/L (13-40); BUN/Creatinine Ratio 45.1 (10.0-20.0); Blood Urea Nitrogen 69 mg/dL (9-23); Carbon Dioxide 22 mmol/L (20-30); Chloride 104 mmol/L (98-107); Glucose 136 mg/dL (74-106); Magnesium 1.9 mg/dL (1.6-2.6); Potassium 4.8 mmol/L (3.5-5.1); Sodium 131 mmol/L (136-145)
[2023-01-26 04:34] LABS: Albumin 2.4 g/dL (3.2-4.8)
[2023-01-26 04:35] LABS: Bilirubin, Total < 0.2 mg/dL (0.2-1.0); Phosphorus 4.1 mg/dL (2.4-5.1); Total Protein 5.7 g/dL (5.7-8.2)
[2023-01-26 05:15] LABS: Lymphocytes % (manual) 3 (10.0-50.0); Monocytes % (manual) 3 (0-12); Myelocytes % 2; Platelet Estimate Adequate
[2023-01-26] MEDS: InsuLIN REG 1unit/0.01ml Soln (100units/ml) SC SCH ×4 (06:00→23:27)
[2023-01-26] MEDS: ceFAZolin 2 GM/D5W100ml 100 ML IV SCH ×3 (06:11→22:23)
[2023-01-26] MEDS: FUROSEMIDE 40 MG/4 ML VIAL IV SCH (06:13)
[2023-01-26] MEDS: FREE WATER GT SCH ×2 (06:27)
[2023-01-26] MEDS: ACCU-CHEK COMFORT CURVE STRIP VI SCH ×4 (06:28→23:26)
[2023-01-26 08:34] LABS: Base Excess -9.7 mmol/L (-2.0-2.0)
[2023-01-26 09:37] LABS: Base Excess -10.2 mmol/L (-2.0-2.0)
[2023-01-26] MEDS: PANTOPRAZOLE 40 MG/10 ML VIAL INJ IV SCH ×2 (09:40→22:14)
[2023-01-26] MEDS: methylPREDNISolone SOD SUCC 40 MG/ML VL IV SCH (09:42)
[2023-01-26] MEDS: SODIUM CHLOR 0.9% PF (SALINE LOCK) 10ML VIAL/SYR IV SCH ×2 (09:42→22:23)
[2023-01-26] MEDS: LACTULOSE 20Gm/30ML SOLN PO SCH (10:10)
[2023-01-26] MEDS ORDERED: SODIUM BICARBONATE 8.4 % INJ 50ML VIAL IV ONE (12:00)
[2023-01-26] MEDS: PROPOFOL 100 ML IV SCH (12:30)
[2023-01-26] MEDS: FUROSEMIDE INJECTION 100 MG in SODIUM CHL 0.9% 100 ML IV SCH ×2 (14:07→22:12)
[2023-01-26] MEDS: ALBUMIN 25% 50 ML IV SCH ×2 (14:14→22:14)
[2023-01-26 15:03] LABS: % Iron Saturation 5.2 % (20-55)
[2023-01-26] MEDS ORDERED: BUMETANIDE 2.5mg/10ml (0.25 mg/ml) INJ IV SCH (18:00)
[2023-01-26] MEDS: ATRACURIUM BESYLATE 1,000 MG in D5W 5% 150 ML IV SCH (18:45)
[2023-01-26] MEDS ORDERED: TPN PER PHARMACY IV NR ×9 (20:00)
[2023-01-26] MEDS: PHENYLEPHRINE INJ 80 MG in SODIUM CHL 0.9% 242 ML IV SCH (20:45)
[2023-01-27] VITALS (110 sets, daily range): BP systolic 92–176; BP diastolic 47–88; PULSE 100–112; RESP 14–30; TEMP 93.7–98.4; O2SAT 2–96
[2023-01-27] MEDS: VASOPRESSIN 20 UNITS in SODIUM CHL 0.9% 99 ML IV SCH ×2 (01:42→12:58)
[2023-01-27] MEDS: MIDAZOLAM DRIP 50 mg/50mL 50 ML IV SCH ×6 (01:42→21:11)
[2023-01-27] MEDS: Jevity 1.2 Cal/Fiber 1 Liter GT SCH (02:18)
[2023-01-27] MEDS: IPRATROPIUM BROM 0.5 MG/2.5ML INH SOL NEB SCH ×6 (02:27→22:27)
[2023-01-27] MEDS: ALBUTEROL SULF 2.5 MG/0.5ML(0.5%) NEB SOLN NEB SCH ×6 (02:27→22:27)
[2023-01-27 04:15] LABS: Hemoglobin 7.6 g/dL (13.5-17.5)
[2023-01-27 04:18] LABS: Hematocrit 23.4 % (41.0-53.0); Mean Corpuscular Hemoglobin 29.2 pg (28.0-32.0); Mean Corpuscular Hgb Conc. 32.3 g/dL (32.0-36.0); Mean Corpuscular Volume 90.3 fL (80.0-100.0); Red Blood Cells 2.59 10^6/uL (4.5-5.90); White Blood Cell 24.8 10^3/uL (4.4-10.8)
[2023-01-27 04:28] LABS: Band Neutrophils % (manual) 0; Basophils % (manual) 0 (0.0-2.0); Blast Cells 0; Eosinophils % (manual) 0 (0-7); Promyelocytes % 0; Reactive Lymphocytes 0
[2023-01-27 04:36] LABS: Alanine Aminotransferase 26 U/L (7-40); Albumin 2.7 g/dL (3.2-4.8); Alkaline Phosphatase 119 U/L (46-116); Anion Gap 7 (5-15); Bilirubin, Total < 0.2 mg/dL (0.2-1.0); Blood Urea Nitrogen 76 mg/dL (9-23); Calcium 8.1 mg/dL (8.7-10.4); Carbon Dioxide 24 mmol/L (20-30); Chloride 101 mmol/L (98-107); Glucose 122 mg/dL (74-106); Phosphorus 4.3 mg/dL (2.4-5.1); Potassium 4.7 mmol/L (3.5-5.1); Sodium 132 mmol/L (136-145); Total Protein 5.6 g/dL (5.7-8.2)
[2023-01-27] MEDS: ceFAZolin 2 GM/D5W100ml 100 ML IV SCH ×3 (05:03→21:11)
[2023-01-27 05:10] LABS: Aspartate Aminotransferase 51 U/L (13-40); Triglycerides 108 mg/dL (< 150)
[2023-01-27 05:20] LABS: Lymphocytes % (manual) 5 (10.0-50.0); Metamyelocytes % 1; Monocytes % (manual) 6 (0-12); Myelocytes % 1; Platelet Estimate Decreased
[2023-01-27] MEDS: ALBUMIN 25% 50 ML IV SCH (05:45)
[2023-01-27] MEDS: ACCU-CHEK COMFORT CURVE STRIP VI SCH ×4 (05:45→23:01)
[2023-01-27] MEDS: InsuLIN REG 1unit/0.01ml Soln (100units/ml) SC SCH ×4 (05:45→23:01)
[2023-01-27 07:05] LABS: Base Excess -5.8 mmol/L (-2.0-2.0)
[2023-01-27] MEDS: SODIUM CHLOR 0.9% PF (SALINE LOCK) 10ML VIAL/SYR IV SCH ×2 (09:44→21:14)
[2023-01-27] MEDS: LACTULOSE 20Gm/30ML SOLN PO SCH (09:44)
[2023-01-27] MEDS: methylPREDNISolone SOD SUCC 40 MG/ML VL IV SCH (09:44)
[2023-01-27] MEDS: FUROSEMIDE INJECTION 100 MG in SODIUM CHL 0.9% 100 ML IV SCH ×2 (09:45→19:16)
[2023-01-27] MEDS: PANTOPRAZOLE 40 MG/10 ML VIAL INJ IV SCH ×2 (10:48→21:11)
[2023-01-27] MEDS: fentaNYL Drip 2500mCg/250mlNS 250 ML IV SCH ×2 (11:38→23:27)
[2023-01-27] MEDS: PROPOFOL 100 ML IV SCH ×2 (12:30→23:03)
[2023-01-27] MEDS: SODIUM FERR GLUC 62.5MG/5ML 125 MG in SODIUM CHL 0.9% 100 ML IV SCH (16:09)
[2023-01-27] MEDS: NOREPINEPHRINE BITARTRATE 32 MG in SODIUM CHL 0.9% 218 ML IV SCH (18:15)
[2023-01-27] MEDS ORDERED: FLEET ENEMA(ADULT) 135 ML PR ONE (18:30)
[2023-01-27] MEDS: ATRACURIUM BESYLATE 1,000 MG in D5W 5% 150 ML IV SCH (18:45)
[2023-01-27] MEDS ORDERED: TPN PER PHARMACY IV NR ×10 (20:00)
[2023-01-27] MEDS: PHENYLEPHRINE INJ 80 MG in SODIUM CHL 0.9% 242 ML IV SCH (20:45)
[2023-01-27] MEDS: METOCLOPRAMIDE HCL 5MG/ml INJ 2ml VIAL IV SCH (21:16)
[2023-01-28] VITALS (109 sets, daily range): BP systolic 87–205; BP diastolic 44–200; PULSE 97–106; RESP 25–32; TEMP 97–97.9; O2SAT 90–98
[2023-01-28] MEDS: VASOPRESSIN 20 UNITS in SODIUM CHL 0.9% 99 ML IV SCH ×3 (00:05→21:55)
[2023-01-28] MEDS: MIDAZOLAM DRIP 50 mg/50mL 50 ML IV SCH ×5 (00:51→21:55)
[2023-01-28] MEDS: IPRATROPIUM BROM 0.5 MG/2.5ML INH SOL NEB SCH ×6 (02:06→22:15)
[2023-01-28] MEDS: ALBUTEROL SULF 2.5 MG/0.5ML(0.5%) NEB SOLN NEB SCH ×6 (02:06→22:15)
[2023-01-28 04:17] LABS: Hematocrit 21.2 % (41.0-53.0); Hemoglobin 7.1 g/dL (13.5-17.5); Mean Corpuscular Volume 88.4 fL (80.0-100.0)
[2023-01-28 04:18] LABS: Mean Corpuscular Hemoglobin 29.6 pg (28.0-32.0); Mean Corpuscular Hgb Conc. 33.5 g/dL (32.0-36.0); Red Blood Cells 2.39 10^6/uL (4.5-5.90); White Blood Cell 21.1 10^3/uL (4.4-10.8)
[2023-01-28 04:25] LABS: Alanine Aminotransferase 13 U/L (7-40); Albumin 2.4 g/dL (3.2-4.8); Alkaline Phosphatase 117 U/L (46-116); Aspartate Aminotransferase 50 U/L (13-40); BUN/Creatinine Ratio 46.9 (10.0-20.0); Calcium 8.1 mg/dL (8.7-10.4); Chloride 100 mmol/L (98-107); Glucose 113 mg/dL (74-106); Potassium 4.1 mmol/L (3.5-5.1); Sodium 133 mmol/L (136-145)
[2023-01-28 04:26] LABS: Bilirubin, Total < 0.2 mg/dL (0.2-1.0); Phosphorus 4.5 mg/dL (2.4-5.1); Total Protein 5.2 g/dL (5.7-8.2)
[2023-01-28 04:30] LABS: Basophils % (manual) 0 (0.0-2.0); Blast Cells 0; Eosinophils % (manual) 0 (0-7); Metamyelocytes % 0; Myelocytes % 0; Promyelocytes % 0; Reactive Lymphocytes 0
[2023-01-28 04:52] LABS: Blood Urea Nitrogen 84 mg/dL (9-23)
[2023-01-28 04:55] LABS: Anion Gap 7 (5-15); Carbon Dioxide 26 mmol/L (20-30)
[2023-01-28] MEDS: METOCLOPRAMIDE HCL 5MG/ml INJ 2ml VIAL IV SCH ×3 (05:06→21:54)
[2023-01-28] MEDS: FUROSEMIDE INJECTION 100 MG in SODIUM CHL 0.9% 100 ML IV SCH (05:06)
[2023-01-28] MEDS: ceFAZolin 2 GM/D5W100ml 100 ML IV SCH ×3 (05:06→21:54)
[2023-01-28] MEDS: ACCU-CHEK COMFORT CURVE STRIP VI SCH ×4 (05:27→23:57)
[2023-01-28] MEDS: InsuLIN REG 1unit/0.01ml Soln (100units/ml) SC SCH ×4 (05:27→23:57)
[2023-01-28] MEDS: Jevity 1.2 Cal/Fiber 1 Liter GT SCH (05:33)
[2023-01-28 06:38] LABS: Band Neutrophils % (manual) 4; Lymphocytes % (manual) 6 (10.0-50.0); Monocytes % (manual) 11 (0-12); Platelet Estimate Decreased
[2023-01-28 09:25] LABS: Base Excess -2.4 mmol/L (-2.0-2.0)
[2023-01-28] MEDS: SODIUM CHLOR 0.9% PF (SALINE LOCK) 10ML VIAL/SYR IV SCH ×2 (10:32→21:54)
[2023-01-28] MEDS: PANTOPRAZOLE 40 MG/10 ML VIAL INJ IV SCH ×2 (10:32→21:54)
[2023-01-28] MEDS: methylPREDNISolone SOD SUCC 40 MG/ML VL IV SCH (10:32)
[2023-01-28] MEDS: LACTULOSE 20Gm/30ML SOLN PO SCH (10:32)
[2023-01-28] MEDS: fentaNYL Drip 2500mCg/250mlNS 250 ML IV SCH (12:00)
[2023-01-28] MEDS: SODIUM FERR GLUC 62.5MG/5ML 125 MG in SODIUM CHL 0.9% 100 ML IV SCH (12:49)
[2023-01-28] MEDS: NOREPINEPHRINE BITARTRATE 32 MG in SODIUM CHL 0.9% 218 ML IV SCH (14:10)
[2023-01-28] MEDS ORDERED: BUMETANIDE 2.5mg/10ml (0.25 mg/ml) INJ IV ONE (14:45)
[2023-01-28] MEDS ORDERED: metOLazone 5 MG TAB PO ONE (14:45)
[2023-01-28] MEDS ORDERED: NOREPINEPHRINE 8 MG/250ML KIT 250 ML IV ONE (16:39)
[2023-01-28] MEDS: NOREPINEPHRINE 8 MG/250ML KIT 250 ML IV SCH (16:54)
[2023-01-28] MEDS: PROPOFOL 100 ML IV SCH (17:02)
[2023-01-28] MEDS: BUMETANIDE INJECTION 25 MG in GIVE UN-DILUTED 0 ML IV SCH (17:09)
[2023-01-28] MEDS: ATRACURIUM BESYLATE 1,000 MG in D5W 5% 150 ML IV SCH (18:45)
[2023-01-28] MEDS ORDERED: FAT EMULSION IV NR ×10 (20:00)
[2023-01-28] MEDS ORDERED: [UNRECOGNIZED DRUG - OTHER] IV NR ×10 (20:00)
[2023-01-28] MEDS ORDERED: SODIUM ACETATE IV NR ×10 (20:00)
[2023-01-28] MEDS ORDERED: SODIUM CHLORIDE IV NR ×10 (20:00)
[2023-01-28] MEDS: PHENYLEPHRINE INJ 80 MG in SODIUM CHL 0.9% 242 ML IV SCH (20:45)
[2023-01-29] VITALS (115 sets, daily range): BP systolic 82–145; BP diastolic 36–75; PULSE 88–105; RESP 17–35; TEMP 96–99.1; O2SAT 91–98
[2023-01-29] MEDS: fentaNYL Drip 2500mCg/250mlNS 250 ML IV SCH ×2 (00:40→13:19)
[2023-01-29] MEDS: ALBUTEROL SULF 2.5 MG/0.5ML(0.5%) NEB SOLN NEB SCH ×6 (02:21→22:57)
[2023-01-29] MEDS: IPRATROPIUM BROM 0.5 MG/2.5ML INH SOL NEB SCH ×6 (02:21→22:57)
[2023-01-29] MEDS: MIDAZOLAM DRIP 50 mg/50mL 50 ML IV SCH ×4 (02:24→19:55)
[2023-01-29] MEDS: BUMETANIDE INJECTION 25 MG in GIVE UN-DILUTED 0 ML IV SCH ×2 (03:10→16:05)
[2023-01-29 04:02] LABS: Hematocrit 21.2 % (41.0-53.0); Mean Corpuscular Hemoglobin 30.6 pg (28.0-32.0); Mean Corpuscular Hgb Conc. 33.3 g/dL (32.0-36.0); Mean Corpuscular Volume 91.9 fL (80.0-100.0); Red Blood Cells 2.31 10^6/uL (4.5-5.90); Red Cell Distribution Width 15.6 % (11.8-14.3)
[2023-01-29 04:14] LABS: Basophils % (manual) 0 (0.0-2.0); Blast Cells 0; Eosinophils % (manual) 0 (0-7); Metamyelocytes % 0; Myelocytes % 0; Promyelocytes % 0; Reactive Lymphocytes 0
[2023-01-29 04:40] LABS: Band Neutrophils % (manual) 1; Lymphocytes % (manual) 15 (10.0-50.0); Monocytes % (manual) 9 (0-12)
[2023-01-29 04:41] LABS: Platelet Estimate Decreased
[2023-01-29] MEDS: METOCLOPRAMIDE HCL 5MG/ml INJ 2ml VIAL IV SCH ×3 (05:51→23:42)
[2023-01-29] MEDS: ceFAZolin 2 GM/D5W100ml 100 ML IV SCH ×3 (05:51→22:05)
[2023-01-29] MEDS: ACCU-CHEK COMFORT CURVE STRIP VI SCH ×4 (05:51→23:41)
[2023-01-29] MEDS: PROPOFOL 100 ML IV SCH ×2 (05:51→17:37)
[2023-01-29] MEDS: InsuLIN REG 1unit/0.01ml Soln (100units/ml) SC SCH ×4 (05:52→23:44)
[2023-01-29 06:53] LABS: Chloride 99 mmol/L (98-107); Potassium 3.4 mmol/L (3.5-5.1); Sodium 134 mmol/L (136-145)
[2023-01-29 06:57] LABS: Anion Gap 6 (5-15); Calcium 8.1 mg/dL (8.7-10.4); Carbon Dioxide 29 mmol/L (20-30)
[2023-01-29 07:02] LABS: BUN/Creatinine Ratio 46.9 (10.0-20.0); Glucose 112 mg/dL (74-106)
[2023-01-29 07:03] LABS: Alkaline Phosphatase 112 U/L (46-116); Magnesium 2.2 mg/dL (1.6-2.6)
[2023-01-29 07:04] LABS: Albumin 2.2 g/dL (3.2-4.8); Aspartate Aminotransferase 39 U/L (13-40); Bilirubin, Total < 0.2 mg/dL (0.2-1.0); Phosphorus 4.2 mg/dL (2.4-5.1)
[2023-01-29 07:27] LABS: Alanine Aminotransferase < 9 U/L (7-40)
[2023-01-29 07:28] LABS: Blood Urea Nitrogen 92 mg/dL (9-23)
[2023-01-29] MEDS: VASOPRESSIN 20 UNITS in SODIUM CHL 0.9% 99 ML IV SCH ×2 (09:08→20:33)
[2023-01-29] MEDS ORDERED: POTASSIUM CHL 20MEQ/100ML 100 ML IV ONE (09:30)
[2023-01-29] MEDS: PANTOPRAZOLE 40 MG/10 ML VIAL INJ IV SCH ×2 (10:34→23:41)
[2023-01-29] MEDS: LACTULOSE 20Gm/30ML SOLN PO SCH (10:34)
[2023-01-29] MEDS: SODIUM CHLOR 0.9% PF (SALINE LOCK) 10ML VIAL/SYR IV SCH ×2 (10:34→23:41)
[2023-01-29] MEDS: methylPREDNISolone SOD SUCC 40 MG/ML VL IV SCH (10:34)
[2023-01-29 12:42] LABS: Base Excess -1.1 mmol/L (-2.0-2.0)
[2023-01-29] MEDS: SODIUM FERR GLUC 62.5MG/5ML 125 MG in SODIUM CHL 0.9% 100 ML IV SCH (14:25)
[2023-01-29] MEDS: NOREPINEPHRINE 8 MG/250ML KIT 250 ML IV SCH (16:20)
[2023-01-29] MEDS: ATRACURIUM BESYLATE 1,000 MG in D5W 5% 150 ML IV SCH (19:00)
[2023-01-29] MEDS ORDERED: TPN PER PHARMACY IV NR ×11 (20:00)
[2023-01-29] MEDS: PHENYLEPHRINE INJ 80 MG in SODIUM CHL 0.9% 242 ML IV SCH (20:45)
[2023-01-30] VITALS (106 sets, daily range): BP systolic 88–124; BP diastolic 45–69; PULSE 90–107; RESP 23–32; TEMP 97.7–99.1; O2SAT 88–95
[2023-01-30] MEDS: MIDAZOLAM DRIP 50 mg/50mL 50 ML IV SCH ×5 (00:43→23:38)
[2023-01-30] MEDS: fentaNYL Drip 2500mCg/250mlNS 250 ML IV SCH ×3 (00:51→23:09)
[2023-01-30] MEDS: IPRATROPIUM BROM 0.5 MG/2.5ML INH SOL NEB SCH ×6 (02:10→22:02)
[2023-01-30] MEDS: ALBUTEROL SULF 2.5 MG/0.5ML(0.5%) NEB SOLN NEB SCH ×6 (02:10→22:02)
[2023-01-30 04:22] LABS: Basophils # (auto) 0.1 10 ^3/uL (0-0.2); Basophils % (auto) 0.3 % (0.0-2.0); Eosinophils # (auto) 0 10 ^3/uL (0-0.8); Eosinophils % (auto) 0.1 % (0.0-7.0); Hematocrit 26.1 % (41.0-53.0); Hemoglobin 8.7 g/dL (13.5-17.5); Lymphocytes # (auto) 1.3 10 ^3/uL (0.4-5.4); Lymphocytes % (auto) 5.9 % (10.0-50.0); Mean Corpuscular Hemoglobin 29.2 pg (28.0-32.0); Mean Corpuscular Hgb Conc. 33.5 g/dL (32.0-36.0); Mean Corpuscular Volume 87.2 fL (80.0-100.0); Monocytes # (auto) 2.9 10 ^3/uL (0-1.3); Monocytes % (auto) 13.1 % (0.0-12.0); Neutrophils # (auto) 17.6 10 ^3/uL (1.6-8.6); Neutrophils % (auto) 80.6 % (37.0-80.0); Nucleated Red Blood Cells % 0.4 %; Red Blood Cells 2.99 10^6/uL (4.5-5.90); Red Cell Distribution Width 14.6 % (11.8-14.3); White Blood Cell 21.9 10^3/uL (4.4-10.8)
[2023-01-30 04:38] LABS: Albumin 2.1 g/dL (3.2-4.8); Alkaline Phosphatase 109 U/L (46-116); Anion Gap 8 (5-15); Aspartate Aminotransferase 32 U/L (13-40); BUN/Creatinine Ratio 45.6 (10.0-20.0); Calcium 8.1 mg/dL (8.7-10.4); Carbon Dioxide 28 mmol/L (20-30); Chloride 96 mmol/L (98-107); Glucose 111 mg/dL (74-106); Magnesium 2.1 mg/dL (1.6-2.6); Phosphorus 3.8 mg/dL (2.4-5.1); Potassium 3.4 mmol/L (3.5-5.1); Sodium 132 mmol/L (136-145)
[2023-01-30 04:39] LABS: Bilirubin, Total < 0.2 mg/dL (0.2-1.0); Total Protein 4.7 g/dL (5.7-8.2)
[2023-01-30] MEDS: BUMETANIDE INJECTION 25 MG in GIVE UN-DILUTED 0 ML IV SCH (04:48)
[2023-01-30 04:56] LABS: Alanine Aminotransferase < 9 U/L (7-40)
[2023-01-30 04:57] LABS: Blood Urea Nitrogen 94 mg/dL (9-23)
[2023-01-30] MEDS: METOCLOPRAMIDE HCL 5MG/ml INJ 2ml VIAL IV SCH ×3 (05:45→22:16)
[2023-01-30] MEDS: ACCU-CHEK COMFORT CURVE STRIP VI SCH ×4 (05:45→23:38)
[2023-01-30] MEDS: ceFAZolin 2 GM/D5W100ml 100 ML IV SCH ×3 (05:45→22:16)
[2023-01-30] MEDS: InsuLIN REG 1unit/0.01ml Soln (100units/ml) SC SCH ×4 (05:45→23:45)
[2023-01-30] MEDS: Jevity 1.2 Cal/Fiber 1 Liter GT SCH (06:26)
[2023-01-30] MEDS: PROPOFOL 100 ML IV SCH (06:45)
[2023-01-30] MEDS: VASOPRESSIN 20 UNITS in SODIUM CHL 0.9% 99 ML IV SCH ×2 (07:40→18:47)
[2023-01-30] MEDS: LACTULOSE 20Gm/30ML SOLN PO SCH (10:30)
[2023-01-30] MEDS: SODIUM CHLOR 0.9% PF (SALINE LOCK) 10ML VIAL/SYR IV SCH ×2 (10:30→22:17)
[2023-01-30] MEDS: PANTOPRAZOLE 40 MG/10 ML VIAL INJ IV SCH ×2 (10:30→22:16)
[2023-01-30] MEDS: methylPREDNISolone SOD SUCC 40 MG/ML VL IV SCH (10:30)
[2023-01-30] MEDS ORDERED: POTASSIUM CHL 20MEQ/100ML 100 ML IV ONE (13:00)
[2023-01-30] MEDS: SODIUM FERR GLUC 62.5MG/5ML 125 MG in SODIUM CHL 0.9% 100 ML IV SCH (13:28)
[2023-01-30] MEDS: NOREPINEPHRINE 8 MG/250ML KIT 250 ML IV SCH (16:45)
[2023-01-30] MEDS: ATRACURIUM BESYLATE 1,000 MG in D5W 5% 150 ML IV SCH (18:45)
[2023-01-30] MEDS ORDERED: SODIUM ACETATE IV NR ×10 (20:00)
[2023-01-30] MEDS ORDERED: SODIUM CHLORIDE IV NR ×10 (20:00)
[2023-01-30] MEDS ORDERED: FAT EMULSION IV NR ×10 (20:00)
[2023-01-30] MEDS ORDERED: [UNRECOGNIZED DRUG - OTHER] IV NR ×10 (20:00)
[2023-01-30] MEDS: PHENYLEPHRINE INJ 80 MG in SODIUM CHL 0.9% 242 ML IV SCH (20:45)
[2023-01-31] VITALS (113 sets, daily range): BP systolic 73–141; BP diastolic 32–74; PULSE 93–112; RESP 18–33; TEMP 97–99; O2SAT 87–98
[2023-01-31] MEDS: PROPOFOL 100 ML IV SCH ×3 (01:13→17:13)
[2023-01-31] MEDS: NOREPINEPHRINE 8 MG/250ML KIT 250 ML IV SCH ×2 (01:42→17:10)
[2023-01-31] MEDS: ALBUTEROL SULF 2.5 MG/0.5ML(0.5%) NEB SOLN NEB SCH ×6 (02:04→22:07)
[2023-01-31] MEDS: IPRATROPIUM BROM 0.5 MG/2.5ML INH SOL NEB SCH ×6 (02:04→22:07)
[2023-01-31 04:47] LABS: INR 1.22 (0.9-1.15); Prothrombin Time 12.6 sec (9.3-11.8)
[2023-01-31] MEDS: MIDAZOLAM DRIP 50 mg/50mL 50 ML IV SCH ×6 (04:47→22:30)
[2023-01-31 04:48] LABS: Hematocrit 27.9 % (41.0-53.0); Hemoglobin 9.2 g/dL (13.5-17.5); Mean Corpuscular Hgb Conc. 32.9 g/dL (32.0-36.0); Mean Corpuscular Volume 87.9 fL (80.0-100.0); Red Blood Cells 3.17 10^6/uL (4.5-5.90); Red Cell Distribution Width 14.9 % (11.8-14.3)
[2023-01-31 04:53] LABS: Albumin 2.3 g/dL (3.2-4.8); Alkaline Phosphatase 108 U/L (46-116); Anion Gap 10 (5-15); Aspartate Aminotransferase 30 U/L (13-40); BUN/Creatinine Ratio 44.1 (10.0-20.0); Basophils % (manual) 0 (0.0-2.0); Bilirubin, Total < 0.2 mg/dL (0.2-1.0); Blast Cells 0; Calcium 8.4 mg/dL (8.5-10.1); Carbon Dioxide 26 mmol/L (20-30); Chloride 98 mmol/L (98-107); Eosinophils % (manual) 0 (0-7); Glucose 124 mg/dL (74-106); Myelocytes % 0; Potassium 3.8 mmol/L (3.5-5.1); Promyelocytes % 0; Reactive Lymphocytes 0; Sodium 134 mmol/L (136-145); Total Protein 5.1 g/dL (5.7-8.2)
[2023-01-31 05:03] LABS: Alanine Aminotransferase < 9 U/L (7-40)
[2023-01-31 05:04] LABS: Blood Urea Nitrogen 98 mg/dL (9-23)
[2023-01-31 05:18] LABS: Magnesium 2.2 mg/dL (1.6-2.6)
[2023-01-31] MEDS: VASOPRESSIN 20 UNITS in SODIUM CHL 0.9% 99 ML IV SCH ×2 (05:54→17:01)
[2023-01-31] MEDS: InsuLIN REG 1unit/0.01ml Soln (100units/ml) SC SCH ×4 (06:00→23:52)
[2023-01-31] MEDS: METOCLOPRAMIDE HCL 5MG/ml INJ 2ml VIAL IV SCH ×3 (06:12→22:05)
[2023-01-31] MEDS: ACCU-CHEK COMFORT CURVE STRIP VI SCH ×4 (06:12→23:51)
[2023-01-31] MEDS: ceFAZolin 2 GM/D5W100ml 100 ML IV SCH ×3 (06:15→22:05)
[2023-01-31 08:27] LABS: Base Excess -2.6 mmol/L (-2.0-2.0)
[2023-01-31 08:55] LABS: Band Neutrophils % (manual) 8; Lymphocytes % (manual) 9 (10.0-50.0); Metamyelocytes % 2; Monocytes % (manual) 10 (0-12); Platelet Estimate Adequate
[2023-01-31] MEDS ORDERED: LIDOCAINE 2% JELLY 11ml (GLYDO) ONE (09:37)
[2023-01-31] MEDS ORDERED: GLYCOPYRROLATE 0.2 MG/ML 1ML VIAL ONE (09:38)
[2023-01-31] MEDS ORDERED: EPINEPHrine HCL 1 MG/1 ML AMP ONE (09:38)
[2023-01-31] MEDS ORDERED: LIDOCAINE 2%HCL (LOCAL ANESTH.) INJ 20ML MDV ONE (09:38)
[2023-01-31] MEDS: LACTULOSE 20Gm/30ML SOLN PO SCH (10:00)
[2023-01-31] MEDS ORDERED: SODIUM CHL 0.9% 1000 ML BAG XX ONE (11:00)
[2023-01-31] MEDS: methylPREDNISolone SOD SUCC 40 MG/ML VL IV SCH (11:12)
[2023-01-31] MEDS: PANTOPRAZOLE 40 MG/10 ML VIAL INJ IV SCH ×2 (11:12→22:05)
[2023-01-31] MEDS: SODIUM CHLOR 0.9% PF (SALINE LOCK) 10ML VIAL/SYR IV SCH ×2 (11:13→22:06)
[2023-01-31] MEDS: fentaNYL Drip 2500mCg/250mlNS 250 ML IV SCH ×2 (11:14→22:36)
[2023-01-31] MEDS: SODIUM FERR GLUC 62.5MG/5ML 125 MG in SODIUM CHL 0.9% 100 ML IV SCH (11:30)
[2023-01-31] MEDS: ATRACURIUM BESYLATE 1,000 MG in D5W 5% 150 ML IV SCH (18:45)
[2023-01-31] MEDS ORDERED: TPN PER PHARMACY IV NR ×10 (20:00)
[2023-01-31] MEDS: PHENYLEPHRINE INJ 80 MG in SODIUM CHL 0.9% 242 ML IV SCH (20:45)
[2023-02-01] VITALS (105 sets, daily range): BP systolic 78–152; BP diastolic 32–77; PULSE 89–123; RESP 15–31; TEMP 96.4–100; O2SAT 92–99
[2023-02-01] MEDS: ALBUTEROL SULF 2.5 MG/0.5ML(0.5%) NEB SOLN NEB SCH ×6 (02:11→22:27)
[2023-02-01] MEDS: IPRATROPIUM BROM 0.5 MG/2.5ML INH SOL NEB SCH ×6 (02:11→22:27)
[2023-02-01] MEDS: MIDAZOLAM DRIP 50 mg/50mL 50 ML IV SCH ×7 (02:47→23:13)
[2023-02-01] MEDS: NOREPINEPHRINE 8 MG/250ML KIT 250 ML IV SCH ×2 (03:44→20:18)
[2023-02-01] MEDS: VASOPRESSIN 20 UNITS in SODIUM CHL 0.9% 99 ML IV SCH ×2 (04:08→15:15)
[2023-02-01 04:29] LABS: Hematocrit 26.3 % (41.0-53.0); Hemoglobin 8.6 g/dL (13.5-17.5); Mean Corpuscular Hemoglobin 28.7 pg (28.0-32.0); Mean Corpuscular Hgb Conc. 32.8 g/dL (32.0-36.0); Mean Corpuscular Volume 87.8 fL (80.0-100.0)
[2023-02-01 04:44] LABS: Albumin 2.3 g/dL (3.2-4.8); Alkaline Phosphatase 114 U/L (46-116); Anion Gap 5 (5-15); Aspartate Aminotransferase 27 U/L (13-40); BUN/Creatinine Ratio 35.4 (10.0-20.0); Calcium 8.2 mg/dL (8.7-10.4); Carbon Dioxide 30 mmol/L (20-30); Chloride 98 mmol/L (98-107); Glucose 124 mg/dL (74-106); Magnesium 2.2 mg/dL (1.6-2.6); Potassium 3.6 mmol/L (3.5-5.1); Sodium 133 mmol/L (136-145)
[2023-02-01 04:45] LABS: Bilirubin, Total < 0.2 mg/dL (0.2-1.0); Phosphorus 2.8 mg/dL (2.4-5.1); Total Protein 5.1 g/dL (5.7-8.2)
[2023-02-01 05:13] LABS: Alanine Aminotransferase < 9 U/L (7-40); Blood Urea Nitrogen 63 mg/dL (9-23)
[2023-02-01 05:14] LABS: White Blood Cell 31.3 10^3/uL (4.4-10.8)
[2023-02-01 05:16] LABS: Band Neutrophils % (manual) 0; Basophils % (manual) 0 (0.0-2.0); Blast Cells 0; Eosinophils % (manual) 0 (0-7); Metamyelocytes % 0; Myelocytes % 0; Promyelocytes % 0; Reactive Lymphocytes 0
[2023-02-01] MEDS: InsuLIN REG 1unit/0.01ml Soln (100units/ml) SC SCH ×3 (06:00→17:40)
[2023-02-01] MEDS: METOCLOPRAMIDE HCL 5MG/ml INJ 2ml VIAL IV SCH ×3 (06:00→22:30)
[2023-02-01] MEDS: ceFAZolin 2 GM/D5W100ml 100 ML IV SCH ×3 (06:00→22:30)
[2023-02-01] MEDS: ALBUMIN 25% 100 ML IV SCH ×4 (06:00→18:55)
[2023-02-01] MEDS: ACCU-CHEK COMFORT CURVE STRIP VI SCH ×3 (06:21→17:35)
[2023-02-01 06:55] LABS: Lymphocytes % (manual) 4 (10.0-50.0); Monocytes % (manual) 7 (0-12); Platelet Estimate Adequate
[2023-02-01 06:56] LABS: Anisocytosis Slight; Large Platelets FEW
[2023-02-01] MEDS ORDERED: SODIUM CHL 0.9% 1000 ML BAG XX ONE (07:00)
[2023-02-01] MEDS: methylPREDNISolone SOD SUCC 40 MG/ML VL IV SCH (09:21)
[2023-02-01] MEDS: SODIUM CHLOR 0.9% PF (SALINE LOCK) 10ML VIAL/SYR IV SCH ×2 (09:32→22:30)
[2023-02-01] MEDS: PANTOPRAZOLE 40 MG/10 ML VIAL INJ IV SCH ×2 (09:32→22:30)
[2023-02-01] MEDS: LACTULOSE 20Gm/30ML SOLN PO SCH (09:32)
[2023-02-01 09:49] LABS: Base Excess -1.6 mmol/L (-2.0-2.0)
[2023-02-01] MEDS: fentaNYL Drip 2500mCg/250mlNS 250 ML IV SCH ×2 (11:09→23:17)
[2023-02-01] MEDS: SODIUM FERR GLUC 62.5MG/5ML 125 MG in SODIUM CHL 0.9% 100 ML IV SCH (13:31)
[2023-02-01] MEDS: PROPOFOL 100 ML IV SCH ×2 (14:18→19:44)
[2023-02-01] MEDS: ATRACURIUM BESYLATE 1,000 MG in D5W 5% 150 ML IV SCH (18:45)
[2023-02-01] MEDS ORDERED: TPN PER PHARMACY IV NR ×11 (20:00)
[2023-02-01] MEDS: PHENYLEPHRINE INJ 80 MG in SODIUM CHL 0.9% 242 ML IV SCH (20:45)
[2023-02-01] MEDS ORDERED: EPOETIN ALFA-EPBX 10,000 UNIT/1ML VIAL SC ONE (21:00)
[2023-02-02] VITALS (108 sets, daily range): BP systolic 82–129; BP diastolic 38–71; PULSE 90–119; RESP 12–31; TEMP 86.9–99.1; O2SAT 89–96
[2023-02-02] MEDS: ACCU-CHEK COMFORT CURVE STRIP VI SCH ×5 (00:12→23:47)
[2023-02-02] MEDS: ALBUTEROL SULF 2.5 MG/0.5ML(0.5%) NEB SOLN NEB SCH ×6 (02:00→22:41)
[2023-02-02] MEDS: IPRATROPIUM BROM 0.5 MG/2.5ML INH SOL NEB SCH ×6 (02:00→22:41)
[2023-02-02] MEDS: VASOPRESSIN 20 UNITS in SODIUM CHL 0.9% 99 ML IV SCH ×2 (02:22→13:29)
[2023-02-02] MEDS: MIDAZOLAM DRIP 50 mg/50mL 50 ML IV SCH ×6 (02:43→23:22)
[2023-02-02] MEDS: PROPOFOL 100 ML IV SCH ×2 (02:44→15:29)
[2023-02-02 04:24] LABS: Basophils # (auto) 0.1 10 ^3/uL (0-0.2); Eosinophils # (auto) 0.2 10 ^3/uL (0-0.8); Hemoglobin 7.3 g/dL (13.5-17.5); Lymphocytes # (auto) 1.4 10 ^3/uL (0.4-5.4); Mean Corpuscular Hemoglobin 31.2 pg (28.0-32.0); Red Cell Distribution Width 17.1 % (11.8-14.3)
[2023-02-02 04:26] LABS: Basophils % (auto) 0.6 % (0.0-2.0); Hematocrit 23.1 % (41.0-53.0); Lymphocytes % (auto) 5.8 % (10.0-50.0); Mean Corpuscular Hgb Conc. 31.6 g/dL (32.0-36.0); Mean Corpuscular Volume 98.6 fL (80.0-100.0); Monocytes % (auto) 8.4 % (0.0-12.0); Neutrophils # (auto) 20.3 10 ^3/uL (1.6-8.6); Neutrophils % (auto) 84.2 % (37.0-80.0); Nucleated Red Blood Cells % 0.2 %; Red Blood Cells 2.34 10^6/uL (4.5-5.90); White Blood Cell 24.1 10^3/uL (4.4-10.8)
[2023-02-02] MEDS: METOCLOPRAMIDE HCL 5MG/ml INJ 2ml VIAL IV SCH ×3 (06:00→21:15)
[2023-02-02] MEDS: InsuLIN REG 1unit/0.01ml Soln (100units/ml) SC SCH ×5 (06:00→23:47)
[2023-02-02 06:08] LABS: Albumin 2.9 g/dL (3.2-4.8); Alkaline Phosphatase 104 U/L (46-116); Anion Gap 3 (5-15); Aspartate Aminotransferase 22 U/L (13-40); BUN/Creatinine Ratio 32.2 (10.0-20.0); Calcium 8.2 mg/dL (8.7-10.4); Carbon Dioxide 32 mmol/L (20-30); Chloride 100 mmol/L (98-107); Glucose 111 mg/dL (74-106); Magnesium 2.2 mg/dL (1.6-2.6); Potassium 3.7 mmol/L (3.5-5.1); Sodium 135 mmol/L (136-145)
[2023-02-02 06:09] LABS: Bilirubin, Total < 0.2 mg/dL (0.2-1.0); Phosphorus 2.5 mg/dL (2.4-5.1); Total Protein 5.3 g/dL (5.7-8.2)
[2023-02-02 06:29] LABS: Alanine Aminotransferase < 9 U/L (7-40); Blood Urea Nitrogen 46 mg/dL (9-23)
[2023-02-02 06:44] LABS: Triglycerides 103 mg/dL (< 150)
[2023-02-02 06:55] LABS: Base Excess -2.8 mmol/L (-2.0-2.0)
[2023-02-02] MEDS: ceFAZolin 2 GM/D5W100ml 100 ML IV SCH ×3 (07:51→21:17)
[2023-02-02] MEDS: PANTOPRAZOLE 40 MG/10 ML VIAL INJ IV SCH ×2 (08:45→21:15)
[2023-02-02] MEDS: methylPREDNISolone SOD SUCC 40 MG/ML VL IV SCH (08:45)
[2023-02-02] MEDS: LACTULOSE 20Gm/30ML SOLN PO SCH (08:46)
[2023-02-02] MEDS: SODIUM CHLOR 0.9% PF (SALINE LOCK) 10ML VIAL/SYR IV SCH ×2 (08:46→21:37)
[2023-02-02] MEDS ORDERED: SODIUM CHL 0.9% 1000 ML BAG XX ONE (10:30)
[2023-02-02 10:50] LABS: Hepatitis B Surface Antigen Negative (Negative)
[2023-02-02 11:09] LABS: Hepatitis A Ab IgM Negative
[2023-02-02 11:11] LABS: Hepatitis B Core IgM Negative
[2023-02-02 11:12] LABS: Hepatitis C Antibody Negative (Negative)
[2023-02-02] MEDS ORDERED: TPN PER PHARMACY IV NR ×22 (11:45→20:00)
[2023-02-02] MEDS ORDERED: LACTULOSE 20Gm/30ML SOLN PO PRN (13:00)
[2023-02-02] MEDS: ATRACURIUM BESYLATE 1,000 MG in D5W 5% 150 ML IV SCH (13:42)
[2023-02-02] MEDS: SODIUM FERR GLUC 62.5MG/5ML 125 MG in SODIUM CHL 0.9% 100 ML IV SCH (15:02)
[2023-02-02] MEDS: fentaNYL Drip 2500mCg/250mlNS 250 ML IV SCH ×2 (15:46→21:33)
[2023-02-02] MEDS: PHENYLEPHRINE INJ 80 MG in SODIUM CHL 0.9% 242 ML IV SCH (20:45)
[2023-02-03] VITALS (81 sets, daily range): BP systolic 91–122; BP diastolic 37–61; PULSE 98–112; RESP 20–29; TEMP 96.8–97.9; O2SAT 91–98
[2023-02-03] MEDS: VASOPRESSIN 20 UNITS in SODIUM CHL 0.9% 99 ML IV SCH ×3 (00:36→21:52)
[2023-02-03] MEDS: PROPOFOL 100 ML IV SCH ×3 (01:09→19:15)
[2023-02-03] MEDS: NOREPINEPHRINE 8 MG/250ML KIT 250 ML IV SCH (01:10)
[2023-02-03] MEDS: ALBUTEROL SULF 2.5 MG/0.5ML(0.5%) NEB SOLN NEB SCH ×6 (02:16→23:12)
[2023-02-03] MEDS: IPRATROPIUM BROM 0.5 MG/2.5ML INH SOL NEB SCH ×6 (02:16→23:12)
[2023-02-03] MEDS: MIDAZOLAM DRIP 50 mg/50mL 50 ML IV SCH ×4 (03:47→20:43)
[2023-02-03 04:24] LABS: Hemoglobin 7.2 g/dL (13.5-17.5)
[2023-02-03 04:25] LABS: Hematocrit 21.5 % (41.0-53.0); Mean Corpuscular Hemoglobin 29.7 pg (28.0-32.0); Mean Corpuscular Hgb Conc. 33.4 g/dL (32.0-36.0); Red Blood Cells 2.42 10^6/uL (4.5-5.90); Red Cell Distribution Width 15.3 % (11.8-14.3); White Blood Cell 24.9 10^3/uL (4.4-10.8)
[2023-02-03 04:34] LABS: Albumin 2.7 g/dL (3.2-4.8); Alkaline Phosphatase 113 U/L (46-116); Anion Gap 4 (5-15); Aspartate Aminotransferase 28 U/L (13-40); Calcium 7.8 mg/dL (8.7-10.4); Carbon Dioxide 31 mmol/L (20-30); Chloride 99 mmol/L (98-107); Glucose 133 mg/dL (74-106); Magnesium 1.8 mg/dL (1.6-2.6); Sodium 134 mmol/L (136-145)
[2023-02-03 04:35] LABS: Bilirubin, Total < 0.2 mg/dL (0.2-1.0); Phosphorus 1.9 mg/dL (2.4-5.1)
[2023-02-03 04:47] LABS: Basophils % (manual) 0 (0.0-2.0); Blast Cells 0; Metamyelocytes % 0; Promyelocytes % 0; Reactive Lymphocytes 0
[2023-02-03 04:49] LABS: Alanine Aminotransferase < 9 U/L (7-40); Blood Urea Nitrogen 30 mg/dL (9-23)
[2023-02-03] MEDS: InsuLIN REG 1unit/0.01ml Soln (100units/ml) SC SCH ×2 (06:00→12:00)
[2023-02-03] MEDS: ceFAZolin 2 GM/D5W100ml 100 ML IV SCH (06:02)
[2023-02-03] MEDS: METOCLOPRAMIDE HCL 5MG/ml INJ 2ml VIAL IV SCH ×3 (06:03→21:22)
[2023-02-03] MEDS: ACCU-CHEK COMFORT CURVE STRIP VI SCH ×2 (06:12→12:15)
[2023-02-03 07:38] LABS: Base Excess -0.7 mmol/L (-2.0-2.0)
[2023-02-03] MEDS: fentaNYL Drip 2500mCg/250mlNS 250 ML IV SCH ×2 (08:17→19:23)
[2023-02-03 08:38] LABS: Band Neutrophils % (manual) 2; Eosinophils % (manual) 1 (0-7); Lymphocytes % (manual) 7 (10.0-50.0); Monocytes % (manual) 9 (0-12); Myelocytes % 2; Platelet Estimate Adequate
[2023-02-03] MEDS ORDERED: BUMETANIDE 2.5mg/10ml (0.25 mg/ml) INJ IV ONE (10:15)
[2023-02-03] MEDS: SODIUM CHLOR 0.9% PF (SALINE LOCK) 10ML VIAL/SYR IV SCH ×2 (10:33→21:24)
[2023-02-03] MEDS: methylPREDNISolone SOD SUCC 40 MG/ML VL IV SCH (10:33)
[2023-02-03] MEDS: PANTOPRAZOLE 40 MG/10 ML VIAL INJ IV SCH ×2 (10:33→21:22)
[2023-02-03] MEDS ORDERED: SODIUM PHOSPHATES 40 MEQ in D5W 5% 250 ML IV ONE (11:15)
[2023-02-03] MEDS: cefTRIAXone 1GM/50ML D5W 50 ML IV SCH (12:09)
[2023-02-03] MEDS: SODIUM FERR GLUC 62.5MG/5ML 125 MG in SODIUM CHL 0.9% 100 ML IV SCH (12:18)
[2023-02-03 13:57] LABS: Gastric Occult Blood Positive (Negative)
[2023-02-03] MEDS: ATRACURIUM BESYLATE 1,000 MG in D5W 5% 150 ML IV SCH (19:10)
[2023-02-03] MEDS ORDERED: TPN*HIGH CONC* PER PHARMACY IV NR ×9 (20:00)
[2023-02-03] MEDS: PHENYLEPHRINE INJ 80 MG in SODIUM CHL 0.9% 242 ML IV SCH (20:45)
[2023-02-04] VITALS (102 sets, daily range): BP systolic 82–126; BP diastolic 35–61; PULSE 88–108; RESP 18–28; TEMP 96.6–98.2; O2SAT 89–97
[2023-02-04] MEDS: ACCU-CHEK COMFORT CURVE STRIP VI SCH ×4 (00:14→18:43)
[2023-02-04] MEDS: PROPOFOL 100 ML IV SCH ×4 (00:36→22:04)
[2023-02-04] MEDS: MIDAZOLAM DRIP 50 mg/50mL 50 ML IV SCH ×6 (01:14→22:43)
[2023-02-04] MEDS: ALBUTEROL SULF 2.5 MG/0.5ML(0.5%) NEB SOLN NEB SCH ×6 (02:18→22:35)
[2023-02-04] MEDS: IPRATROPIUM BROM 0.5 MG/2.5ML INH SOL NEB SCH ×6 (02:18→22:36)
[2023-02-04 04:22] LABS: Hemoglobin 7.3 g/dL (13.5-17.5); Mean Corpuscular Hemoglobin 29.4 pg (28.0-32.0); Mean Corpuscular Hgb Conc. 32.3 g/dL (32.0-36.0)
[2023-02-04 04:24] LABS: Hematocrit 22.7 % (41.0-53.0); Red Cell Distribution Width 15.8 % (11.8-14.3); White Blood Cell 25.9 10^3/uL (4.4-10.8)
[2023-02-04 04:28] LABS: Albumin 2.7 g/dL (3.2-4.8); Alkaline Phosphatase 131 U/L (46-116); Anion Gap 6 (5-15); Aspartate Aminotransferase 30 U/L (13-40); BUN/Creatinine Ratio 32.6 (10.0-20.0); Carbon Dioxide 28 mmol/L (20-30); Chloride 97 mmol/L (98-107); Glucose 125 mg/dL (74-106); Magnesium 1.9 mg/dL (1.6-2.6); Phosphorus 5.1 mg/dL (2.4-5.1); Potassium 4.9 mmol/L (3.5-5.1); Sodium 131 mmol/L (136-145)
[2023-02-04 04:29] LABS: Bilirubin, Total < 0.2 mg/dL (0.2-1.0); Total Protein 5.2 g/dL (5.7-8.2)
[2023-02-04 04:54] LABS: Alanine Aminotransferase < 9 U/L (7-40); Blood Urea Nitrogen 42 mg/dL (9-23)
[2023-02-04 05:06] LABS: Basophils % (manual) 0 (0.0-2.0); Blast Cells 0; Eosinophils % (manual) 0 (0-7); Metamyelocytes % 0; Myelocytes % 0; Promyelocytes % 0; Reactive Lymphocytes 0
[2023-02-04] MEDS: METOCLOPRAMIDE HCL 5MG/ml INJ 2ml VIAL IV SCH ×3 (05:23→22:10)
[2023-02-04] MEDS: NOREPINEPHRINE 8 MG/250ML KIT 250 ML IV SCH (05:24)
[2023-02-04] MEDS: InsuLIN REG 1unit/0.01ml Soln (100units/ml) SC SCH ×4 (05:36→18:00)
[2023-02-04] MEDS: fentaNYL Drip 2500mCg/250mlNS 250 ML IV SCH ×2 (06:30→16:42)
[2023-02-04 07:11] LABS: Base Excess -1.7 mmol/L (-2.0-2.0)
[2023-02-04 09:21] LABS: Band Neutrophils % (manual) 2; Lymphocytes % (manual) 14 (10.0-50.0); Monocytes % (manual) 6 (0-12); Platelet Estimate Adequate
[2023-02-04] MEDS: VASOPRESSIN 20 UNITS in SODIUM CHL 0.9% 99 ML IV SCH ×2 (09:57→20:24)
[2023-02-04] MEDS: cefTRIAXone 1GM/50ML D5W 50 ML IV SCH (09:58)
[2023-02-04] MEDS: methylPREDNISolone SOD SUCC 40 MG/ML VL IV SCH (09:59)
[2023-02-04] MEDS: PANTOPRAZOLE 40 MG/10 ML VIAL INJ IV SCH ×2 (09:59→22:10)
[2023-02-04] MEDS: SODIUM CHLOR 0.9% PF (SALINE LOCK) 10ML VIAL/SYR IV SCH ×2 (09:59→22:10)
[2023-02-04] MEDS: ATRACURIUM BESYLATE 1,000 MG in D5W 5% 150 ML IV SCH (18:45)
[2023-02-04] MEDS ORDERED: SODIUM CHLORIDE IV NR ×7 (20:00)
[2023-02-04] MEDS ORDERED: SODIUM ACETATE IV NR ×7 (20:00)
[2023-02-04] MEDS ORDERED: [UNRECOGNIZED DRUG - OTHER] IV NR ×7 (20:00)
[2023-02-04] MEDS ORDERED: MAGNESIUM SULF IV NR ×7 (20:00)
[2023-02-04] MEDS: PHENYLEPHRINE INJ 80 MG in SODIUM CHL 0.9% 242 ML IV SCH (20:22)
[2023-02-05] VITALS (70 sets, daily range): BP systolic 98–114; BP diastolic 41–62; PULSE 95–107; RESP 15–29; TEMP 96.6–98.1; O2SAT 89–96
[2023-02-05] MEDS: ACCU-CHEK COMFORT CURVE STRIP VI SCH ×3 (00:25→13:28)
[2023-02-05] MEDS: ALBUTEROL SULF 2.5 MG/0.5ML(0.5%) NEB SOLN NEB SCH ×4 (02:18→14:06)
[2023-02-05] MEDS: IPRATROPIUM BROM 0.5 MG/2.5ML INH SOL NEB SCH ×4 (02:18→14:06)
[2023-02-05] MEDS: MIDAZOLAM DRIP 50 mg/50mL 50 ML IV SCH ×4 (02:39→14:33)
[2023-02-05] MEDS: PROPOFOL 100 ML IV SCH ×3 (03:25→14:32)
[2023-02-05] MEDS: fentaNYL Drip 2500mCg/250mlNS 250 ML IV SCH ×2 (03:41→14:31)
[2023-02-05 04:32] LABS: Mean Corpuscular Volume 89.9 fL (80.0-100.0)
[2023-02-05 04:35] LABS: Mean Corpuscular Hemoglobin 28.6 pg (28.0-32.0); Mean Corpuscular Hgb Conc. 31.8 g/dL (32.0-36.0); Red Blood Cells 2.34 10^6/uL (4.5-5.90); Red Cell Distribution Width 16.1 % (11.8-14.3); White Blood Cell 26.9 10^3/uL (4.4-10.8)
[2023-02-05 04:43] LABS: Hemoglobin 6.7 g/dL (13.5-17.5)
[2023-02-05 04:47] LABS: Basophils % (manual) 0 (0.0-2.0); Blast Cells 0; Metamyelocytes % 0; Promyelocytes % 0; Reactive Lymphocytes 0
[2023-02-05 04:54] LABS: Albumin 2.5 g/dL (3.2-4.8); Alkaline Phosphatase 138 U/L (46-116); Anion Gap 5 (5-15); Aspartate Aminotransferase 25 U/L (13-40); Bilirubin, Total < 0.2 mg/dL (0.2-1.0); Calcium 7.9 mg/dL (8.7-10.4); Carbon Dioxide 30 mmol/L (20-30); Chloride 102 mmol/L (98-107); Glucose 110 mg/dL (74-106); Phosphorus 4.4 mg/dL (2.4-5.1); Potassium 3.5 mmol/L (3.5-5.1); Sodium 137 mmol/L (136-145); Total Protein 5.1 g/dL (5.7-8.2)
[2023-02-05 05:15] LABS: Alanine Aminotransferase < 9 U/L (7-40); Blood Urea Nitrogen 32 mg/dL (9-23)
[2023-02-05] MEDS: NOREPINEPHRINE 8 MG/250ML KIT 250 ML IV SCH (05:41)
[2023-02-05] MEDS: InsuLIN REG 1unit/0.01ml Soln (100units/ml) SC SCH ×3 (05:45→13:28)
[2023-02-05] MEDS: METOCLOPRAMIDE HCL 5MG/ml INJ 2ml VIAL IV SCH (06:08)
[2023-02-05 07:16] LABS: Base Excess 0.3 mmol/L (-2.0-2.0)
[2023-02-05] MEDS: VASOPRESSIN 20 UNITS in SODIUM CHL 0.9% 99 ML IV SCH (08:11)
[2023-02-05] MEDS ORDERED: POTASSIUM CHL 20MEQ/100ML 100 ML IV ONE (09:30)
[2023-02-05] MEDS: PANTOPRAZOLE 40 MG/10 ML VIAL INJ IV SCH (09:35)
[2023-02-05] MEDS: methylPREDNISolone SOD SUCC 40 MG/ML VL IV SCH (09:35)
[2023-02-05] MEDS: SODIUM CHLOR 0.9% PF (SALINE LOCK) 10ML VIAL/SYR IV SCH (09:35)
[2023-02-05] MEDS: cefTRIAXone 1GM/50ML D5W 50 ML IV SCH (09:35)
[2023-02-05 12:49] LABS: Band Neutrophils % (manual) 1; Eosinophils % (manual) 2 (0-7); Lymphocytes % (manual) 7 (10.0-50.0); Monocytes % (manual) 6 (0-12); Myelocytes % 3
[2023-02-05 12:51] LABS: Platelet Estimate Decreased
[2023-02-05] MEDS ORDERED: TPN*HIGH CONC* PER PHARMACY IV NR ×7 (20:00)
== END 2023-02-05 16:40 | DRG 870 ==
LOC: ER 10:10 → EDBD 10:10 → TELE 13:42 → ICU WEST 17:50
PROVIDERS: ADMIT Nurse Practitioner Family; ATTEND Nurse Practitioner Acute Care
PROC: 5A1955Z Respiratory Ventilation, Greater than 96 Consecutive Hours (ICD-10-PCS; principal; 2023-01-18)
PROC: 0BH17EZ Insertion of Endotracheal Airway into Trachea, Via Natural or Artificial Opening (ICD-10-PCS; 2023-01-18)
PROC: 06HM33Z Insertion of Infusion Device into Right Femoral Vein, Percutaneous Approach (ICD-10-PCS; 2023-01-18)
PROC: 02HV33Z Insertion of Infusion Device into Superior Vena Cava, Percutaneous Approach (ICD-10-PCS; 2023-01-18)
PROC: B548ZZA Ultrasonography of Superior Vena Cava, Guidance (ICD-10-PCS; 2023-01-18)
PROC: 30233N1 Transfusion of Nonautologous Red Blood Cells into Peripheral Vein, Percutaneous Approach (ICD-10-PCS; 2023-01-19)
PROC: B54BZZA Ultrasonography of Right Lower Extremity Veins, Guidance (ICD-10-PCS; 2023-01-20)
PROC: 04HY32Z Insertion of Monitoring Device into Lower Artery, Percutaneous Approach (ICD-10-PCS; 2023-01-20)
PROC: 06HM33Z Insertion of Infusion Device into Right Femoral Vein, Percutaneous Approach (ICD-10-PCS; 2023-01-20)
PROC: 0B9D8ZX Drainage of Right Middle Lung Lobe, Via Natural or Artificial Opening Endoscopic, Diagnostic (ICD-10-PCS; 2023-01-22)
PROC: B24BZZ4 Ultrasonography of Heart with Aorta, Transesophageal (ICD-10-PCS; 2023-01-27)
PROC: 0BDB8ZX Extraction of Left Lower Lobe Bronchus, Via Natural or Artificial Opening Endoscopic, Diagnostic (ICD-10-PCS; 2023-01-31)
PROC: 0BD68ZX Extraction of Right Lower Lobe Bronchus, Via Natural or Artificial Opening Endoscopic, Diagnostic (ICD-10-PCS; 2023-01-31)
PROC: 02HV33Z Insertion of Infusion Device into Superior Vena Cava, Percutaneous Approach (ICD-10-PCS; 2023-01-31)
PROC: B548ZZA Ultrasonography of Superior Vena Cava, Guidance (ICD-10-PCS; 2023-01-31)
PROC: 5A1D70Z Performance of Urinary Filtration, Intermittent, Less than 6 Hours Per Day (ICD-10-PCS; 2023-01-31)
PROC: 5A1D70Z Performance of Urinary Filtration, Intermittent, Less than 6 Hours Per Day (ICD-10-PCS; 2023-02-01)
PROC: 5A1D70Z Performance of Urinary Filtration, Intermittent, Less than 6 Hours Per Day (ICD-10-PCS; 2023-02-02)
PROC: 5A1D70Z Performance of Urinary Filtration, Intermittent, Less than 6 Hours Per Day (ICD-10-PCS; 2023-02-04)
DX: A41.01 Sepsis due to Methicillin susceptible Staphylococcus aureus (principal); E43 Unspecified severe protein-calorie malnutrition; J15.211 Pneumonia due to Methicillin susceptible Staphylococcus aureus; R65.21 Severe sepsis with septic shock; J69.0 Pneumonitis due to inhalation of food and vomit; J80 Acute respiratory distress syndrome; J96.02 Acute respiratory failure with hypercapnia; J96.01 Acute respiratory failure with hypoxia; E87.1 Hypo-osmolality and hyponatremia; J93.9 Pneumothorax, unspecified; N39.0 Urinary tract infection, site not specified; Z68.1 Body mass index [BMI] 19.9 or less, adult; D62 Acute posthemorrhagic anemia; G82.20 Paraplegia, unspecified; J98.11 Atelectasis; N17.9 Acute kidney failure, unspecified; R64 Cachexia; E16.2 Hypoglycemia, unspecified; E86.0 Dehydration; I25.10 Atherosclerotic heart disease of native coronary artery without angina pectoris; L89.159 Pressure ulcer of sacral region, unspecified stage; G40.909 Epilepsy, unspecified, not intractable, without status epilepticus; R13.10 Dysphagia, unspecified; N14.19 Nephropathy induced by other drugs, medicaments and biological substances; T36.8X5A Adverse effect of other systemic antibiotics, initial encounter; T50.2X5A Adverse effect of carbonic-anhydrase inhibitors, benzothiadiazides and other diuretics, initial encounter; E87.6 Hypokalemia; E87.70 Fluid overload, unspecified; Z20.822 Contact with and (suspected) exposure to COVID-19; Z74.01 Bed confinement status; Z87.01 Personal history of pneumonia (recurrent); Z87.820 Personal history of traumatic brain injury; Z95.0 Presence of cardiac pacemaker; Y92.89 Other specified places as the place of occurrence of the external cause
CPT/HCPCS: 31500; 36415; 36556; 36569; 36600; 70450; 71045; 71250; 71260; 74018; 74177; 76604; 80053; 80074; 80202; 81001; 82248; 82270; 82271; 82533; 82565; 82728; 82805; 82962; 83540; 83550; 83605; 83690; 83735; 83880; 84100; 84478; 84484; 85007; 85014; 85018; 85025; 85027; 85610; 85730; 86850; 86900; 86901; 86920; 87040; 87070; 87077; 87081; 87086; 87088; 87186; 87205; 87426; 90935; 93005; 93306; 93312; 93970; 94002; 94003; 94640; 96365; 96368; 96375; 99291; C9113; G0378; J0171; J0696; J1642; J1956; J2185; J2248; J2250; J2543; J2704; J3480; J7060; J7131; P9047